=== PATIENT | male | born 1960 | race African-American/Black ===

== ENCOUNTER 2017-03-08 22:24 | Inpatient (IN) | payer OTHER ==
[~2017-03-08] VITALS: Ht 180.3 cm; Wt 110.8 kg
[~2017-03-08 22:24] MED LIST: ASPI325T8 PO; ATOR40TA PO; LISI-334 PO; LISI-338 PO
[2017-03-08 23:00] LABS: BASO # 0.1 x10^3/uL (0.0-0.2); BASO % 1 % (0-3); EOS % 2 % (0-3); HEMATOCRIT 45.6 % (39.0-53.0); HEMOGLOBIN 15.1 g/dL (13.0-17.5); LYMPH # 3.5 x10^3/uL (1.0-4.8); LYMPH % 40 % (24-48); MEAN CORPUSCULAR HEMOGLOBIN 28 pg (25-35); MEAN CORPUSCULAR HGB CONC 33 g/dL (31-37); MEAN CORPUSCULAR VOLUME 85 fL (79-100); MONO % 9 % (0-9); NEUT % 48 % (31-73); PLATELET COUNT 278 x10^3/uL (140-400); RED BLOOD COUNT 5.37 x10^6/uL (4.30-5.70); RED CELL DISTRIBUTION WIDTH 17.2 % (11.5-14.5); WHITE BLOOD COUNT 8.6 x10^3/uL (4.0-11.0)
[2017-03-08 23:20] LABS: CALCIUM 9.4 mg/dL (8.5-10.1); GFR 92.9; POTASSIUM 4.1 mmol/L (3.5-5.1)
[2017-03-08 23:26] LABS: ALBUMIN 3.7 g/dL (3.4-5.0); DIRECT BILIRUBIN 0.1 mg/dL (0.0-0.2); TOTAL BILIRUBIN 0.2 mg/dL (0.2-1.0); TOTAL PROTEIN 7.3 g/dL (6.4-8.2)
[2017-03-08] MEDS ORDERED: LABETALOL 20 MG/4 ML DISP.SYRIN. IVP ONE (23:30)
[2017-03-08 23:31] LABS: BILIRUBIN,URINE NEGATIVE (NEG); GLUCOSE,URINE NEGATIVE (NEG); NITRITE,URINE NEGATIVE (NEG); PROTEIN,URINE NEGATIVE (NEG-TRACE)
[2017-03-09 00:03] LABS: BACTERIA,URINE 0 /HPF (0-FEW); RBC,URINE OCC /HPF (0-2); SQUAMOUS EPITHELIAL CELL,UR OCC /LPF
[2017-03-09] MEDS ORDERED: MORPHINE SULFATE 4 MG/ML DISP.SYRIN. IV PRN (00:45)
[2017-03-09] MEDS ORDERED: ONDANSETRON PF 4 MG/2 ML VIAL. IV PRN ×2 (00:45→08:30)
--- NOTE | 2017-03-09 00:49 | PHYS DOC ---
Past Medical History Past Medical History: Diabetes-Type II, DVT, High Cholesterol, Hypertension, Stroke Past Surgical History: Appendectomy, Other Additional Past Surgical Histo: LEFT LEG FASCIOTOMY Alcohol Use: Occasionally Drug Use: None Adult General Chief Complaint Chief Complaint: FATIGUE HPI HPI 56 yo M presenting with generalized weakness that started on thursday (3 days ago ) . He reports being last well 3 days ago. He feels a generalized weakness and malaise everywhere. It is worse when he walks. It is present in all extremities. He does feel increased numbness over his right arm. He denies headache. Location brain. Duration constant. No alleviating or exacerbating factors present. Review of systems is negative for chest pain shortness of breath fevers chills nausea vomiting abdominal pain. All other review of systems is negative unless otherwise noted in history of present illness. ED course: 56-year-old male presenting to the emergency department today with generalized fatigue and weakness and malaise with mild focal numbness in his right upper extremity. Patient is outside of the window for TPA and outside of the mechanical thrombectomy window. NIH stroke scale is [address] unremarkable. EKG reviewed by myself shows sinus rhythm with a regular rate. Tama is normal. ST segments are congruent. Not suggestive of ACS. Chest x- ray obtained. Chest x-ray reviewed by myself shows no obvious infiltrate or pneumothorax present. No obvious acute cardiopulmonary process present. Otherwise blood work unremarkable. Given the patient's neurologic changes we admitted the patient for MRI and neurology consultation. Review of Systems Review of Systems SEE ABOVE. Current Medications Current Medications Current Medications Medications (Trade) Dose Ordered Sig/Masoud Start Time Stop Time Status Last Admin Dose Admin Labetalol HCl (Normodyne) 20 mg 1X ONCE 03/08/17 23:30 03/08/17 23:31 DC 03/08/17 23:19 20 MG Morphine Sulfate 2 mg PRN Q2HR PRN 03/09/17 00:45 03/10/17 00:44 UNV Ondansetron HCl (Zofran) 4 mg PRN Q8HRS PRN 03/09/17 00:45 03/10/17 00:44 UNV Allergies Allergies Allergies Coded Allergies Type Severity Reaction Last Updated Verified No Known Drug Allergies 09/05/14 No Physical Exam Physical Exam Constitutional: Well developed, well nourished, no acute distress, non-toxic appearance. HENT: Normocephalic, atraumatic, bilateral external ears normal, oropharynx moist, no oral exudates, nose normal. [] Eyes: PERRLA, EOMI, conjunctiva normal, no discharge. Neck: Normal range of motion, no tenderness, supple, no stridor. [] Cardiovascular:Heart rate regular rhythm, no murmur Lungs & Thorax: Bilateral breath sounds clear to auscultation [] Abdomen: Bowel sounds normal, soft, no tenderness, no masses, no pulsatile masses. Skin: Warm, dry, no erythema, no rash. Back: No tenderness, no CVA tenderness. [] Extremities: No tenderness, no cyanosis, no clubbing, ROM intact, no edema. [] Neurologic: Mental status: Awake oriented and alert x3 Cranial nerves: Extraocular movements intact, eyebrows gonzalez bilaterally smile symmetric, uvula elevation, shoulder shrug intact, tongue protrusion normal DTRs: 2+ Sensation: decreased sensation in the right upper ext without any changes in the other ext. Strength: 5/5 in upper and lower extremities bilaterally Psychologic: Affect normal, judgement normal, mood normal. [] Current Patient Data Vital Signs Vital Signs Date Time Temp Pulse Resp B/P (MAP) Pulse Ox O2 Delivery O2 Flow Rate FiO2 03/08/17 23:19 60 207/100 03/08/17 22:45 98.8 14 100 Room Air 98.8 Lab Values Laboratory Tests Test 03/08/17 22:49 03/08/17 23:22 White Blood Count 8.6 x10^3/uL (4.0-11.0) Red Blood Count 5.37 x10^6/uL (4.30-5.70) Hemoglobin 15.1 g/dL (13.0-17.5) Hematocrit 45.6 % (39.0-53.0) Mean Corpuscular Volume 85 fL (79-100) Mean Corpuscular Hemoglobin 28 pg (25-35) Mean Corpuscular Hemoglobin Concent 33 g/dL (31-37) Red Cell Distribution Width 17.2 % (11.5-14.5) H Platelet Count 278 x10^3/uL (140-400) Neutrophils (%) (Auto) 48 % (31-73) Lymphocytes (%) (Auto) 40 % (24-48) Monocytes (%) (Auto) 9 % (0-9) Eosinophils (%) (Auto) 2 % (0-3) Basophils (%) (Auto) 1 % (0-3) Neutrophils # (Auto) 4.1 x10^3uL (1.8-7.7) Lymphocytes # (Auto) 3.5 x10^3/uL (1.0-4.8) Monocytes # (Auto) 0.8 x10^3/uL (0.0-1.1) Eosinophils # (Auto) 0.2 x10^3/uL (0.0-0.7) Basophils # (Auto) 0.1 x10^3/uL (0.0-0.2) Sodium Level 142 mmol/L (136-145) Potassium Level 4.1 mmol/L (3.5-5.1) Chloride Level 105 mmol/L (98-107) Carbon Dioxide Level 27 mmol/L (21-32) Anion Gap 10 (6-14) Blood Urea Nitrogen 11 mg/dL (8-26) Creatinine 1.0 mg/dL (0.7-1.3) Estimated GFR (Cockcroft-Gault) 92.9 Glucose Level 126 mg/dL (70-99) H Lactic Acid Level 1.1 mmol/L (0.4-2.0) Calcium Level 9.4 mg/dL (8.5-10.1) Total Bilirubin 0.2 mg/dL (0.2-1.0) Direct Bilirubin 0.1 mg/dL (0.0-0.2) Aspartate Amino Transferase (AST) 20 U/L (15-37) Alanine Aminotransferase (ALT) 35 U/L (16-63) Alkaline Phosphatase 122 U/L (46-116) H Troponin I Quantitative < 0.017 ng/mL (0.000-0.055) RV-Yss-B-Type Natriuretic Peptide 44 pg/mL (0-124) Total Protein 7.3 g/dL (6.4-8.2) Albumin 3.7 g/dL (3.4-5.0) Lipase 326 U/L (73-393) Urine Collection Type Unknown Urine Color Yellow Urine Clarity Clear Urine pH 7.0 Urine Specific [place] 1.020 Urine Protein Negative mg/dL (NEG-TRACE) Urine Glucose (UA) Negative mg/dL (NEG) Urine Ketones (Stick) Negative mg/dL (NEG) Urine Blood Negative (NEG) Urine Nitrite Negative (NEG) Urine Bilirubin Negative (NEG) Urine Urobilinogen Dipstick 1.0 mg/dL (0.2 mg/dL) Urine Leukocyte Esterase Negative (NEG) Urine RBC Occ /HPF (0-2) Urine WBC 1-4 /HPF (0-4) Urine Squamous Epithelial Cells Occ /LPF Urine Bacteria 0 /HPF (0-FEW) Urine Mucus Slight /LPF Laboratory Tests 03/08/17 22:49 Laboratory Tests 03/08/17 22:49 EKG EKG [] Radiology/Procedures Radiology/Procedures [] Course & Med Decision Making Course & Med Decision Making Pertinent Labs and Imaging studies reviewed. (See chart for details) [] Dragon Disclaimer Dragon Disclaimer This electronic medical record was generated, in whole or in part, using a voice recognition dictation system. Departure Departure Impression: Primary Impression: Generalized weakness Disposition: 01 HOME, SELF-CARE Admitting Physician: Tierra Shearer Condition: STABLE Referrals: SANJAY ROPER MD (PCP) MEME MENDOZA MD Mar 09, 2017 00:49
--- NOTE | 2017-03-09 00:58 | RAD ---
EXAM: CT head without contrast HISTORY: GENERALIZED WEAKNESS, hx STROKE COMPARISON: October 14, 2014 TECHNIQUE: Computed tomographic images of the head were obtained without contrast. RS compliance statement: One or more of the following individualized dose reduction techniques were utilized for this examination: 1. Automated exposure control 2. Adjustment of the mA and/or kV according to patient size 3. Use of iterative reconstruction technique FINDINGS: There is no acute intracranial process identified. Specifically, there are no intracranial blood products, extra-axial fluid collections, mass effect or midline shift. Ventricles and basilar cisterns are maintained. Some low-attenuation is seen within the left basal ganglia. No adjacent mass effect is present. This is not definitively seen on the previous exam from 2014. The visualized portions of the orbits, paranasal sinuses and mastoid air cells are unremarkable. No suspicious calvarial lesion is seen. IMPRESSION: No acute intracranial findings. Low-attenuation within the left basal ganglia likely represents prior infarct although more acute/subacute ischemia is not entirely excluded. Electronically signed by: Smitha Marcial MD (03/09/2017 12:55 AM) [id number]
[2017-03-09] MEDS ORDERED: LISI10TA2 PO (02:48)
[2017-03-09] MEDS ORDERED: ATOR40TA PO (02:48)
[2017-03-09] MEDS ORDERED: INSU100V13 SQ (02:48)
[2017-03-09] MEDS ORDERED: ASPI325T8 PO (02:48)
[2017-03-09 03:00] VITALS: BP 151/98
--- NOTE | 2017-03-09 06:14 | EKG ---
[facility] [address] [place] [address] Test Date: 2017-03-08 Test Time: 22:41:49 Pat Name: MAYA HAWTHORNE Department: Room: Gender: M Musical Engineer: : 1960 Requested By: MEME MENDOZA Order Number: [id number] Reading MD: Measurements Intervals [place] Rate: 59 P: 59 AR: 176 QRS: 18 QRSD: 86 T: 25 QT: 390 QTc: 390 Interpretive Statements SINUS RHYTHM LEFT ATRIAL ABNORMALITY QRS(T) CONTOUR ABNORMALITY CONSIDER ANTEROLATERAL MYOCARDIAL DAMAGE RI6.01 Unconfirmed report No previous ECG available for comparison
[2017-03-09 07:00] VITALS: BP 193/95
--- NOTE | 2017-03-09 08:09 | RAD ---
Portable chest, 03/08/2017: History: Generalized weakness Comparison is made to a study from 10/15/2014. The heart size and pulmonary vascularity are normal. No pulmonary infiltrates are seen. There is no evidence of pleural fluid. IMPRESSION: No acute cardiopulmonary abnormality is detected.
--- NOTE | 2017-03-09 08:20 | PDOC2 ---
NEUROLOGY CONSULT Date of Admission Date of Admission DATE: 03/09/17 TIME: 08:14 Reason for Consult Reason for Consult: Weakness Referring Physician Referring Physician: Dr. Shearer PCP: Dr. Wilder Source Source: Chart review, Patient History of Present Illness History of Present Illness The patient is a 56-year-old right-handed male who noticed some weakness about 3 -4 days ago mainly on the right side with some numbness in the right hand as well. He had a stroke involving the left side about 4 years ago. He really, cannot explain why he waited so long to come in, but he did not present to our emergency department until last night. Thus, he obviously was not a candidate for interventional treatment such as tissue plasminogen activator. He admits that he has not been taking his medications lately, but is taking a daily aspirin. He will on closer questioning, he has some generalized weakness as well. He is feeling a little better today. There is no headache, diplopia, dysphagia, dysarthria, cognitive change. He made a full recovery from his prior stroke. Past Medical History Cardiovascular: HTN Pulmonary: Bronchitis CENTRAL NERVOUS SYSTEM: CVA Psych: Depression Endocrine: Diabetes Past Surgical History Past Surgical History: Appendectomy Family History Family History: CAD Social History Social History , works at [employer], smokes a pack a day or less, occasional alcohol Current Medications Current Medications Current Medications Labetalol HCl (Normodyne) 20 mg 1X ONCE IVP Last administered on 03/08/17t 23: 19; Start 03/08/17 at 23:30; Stop 03/08/17 at 23:31; Status DC Ondansetron HCl (Zofran) 4 mg PRN Q8HRS PRN IV NAUSEA/VOMITING; Start 03/09/17 at 00:45; Stop 03/10/17 at 00:44 Morphine Sulfate 2 mg PRN Q2HR PRN IV SEVERE PAIN; Start 03/09/17 at 00:45; Stop 03/10/17 at 00:44 Pneumococcal Polyvalent Vaccine (Pneumovax 23) 0.5 ml ONCE ONCE VAX IM ; Start 03/09/17 at 09:00; Stop 03/09/17 at 09:01; Status UNV Active Scripts Active Reported Levemir (Insulin Detemir) 100 Unit/1 Ml Vial 14 Unit SQ HS Aspirin 325 Mg Tablet 1 Tab PO DAILY Lisinopril 10 Mg Tablet 10 Mg PO DAILY Lipitor (Atorvastatin Calcium) 40 Mg Tablet 40 Mg PO HS Allergies Allergies: Coded Allergies: No Known Drug Allergies (Unverified , 09/05/14) ROS Review of System Patient denies fevers, chills, weight loss, dyspnea, angina, abdominal pain, change in bowels, or dysuria. 14 point review of systems is negative. Physical Exam Physical Examination PHYSICAL EXAMINATION: Vital signs: see above. General appearance is normal and in no acute distress. HEENT: Normocephalic and nontraumatic. Eyes, nose, ears, and throat are unremarkable. Neck is supple. No lymphadenopathy. No bruits are heard over the carotid artery. No crepitus. NEUROLOGICAL EXAMINATION: Mental Status Examination: Alert. Oriented to time, place, and person. Answers questions and follows commends. Pupils are equal round and reactive to light and accommodation. Funduscopic exam: No papilledema. Extraocular movements are intact. Visual field exam shows no defect on the direct confrontation. No motor or sensory deficits on the facial exam. Uvula in the midline and the soft palate elevated symmetrically. No deviation of the tongue to any direction. Gross hearing is normal. Shoulder shrug normal. Muscle tone is normal. Muscle strength is 5, does have slight right pronator drift. Deep tendon reflexes are 1+ all around. Plantar reflex is with flexion response bilaterally. [id number] test performance is accurate. Alternative movements are accurate. Gait is a little unsteady. Sensory exam shows no deficits. No cerebellar signs are elicited. Vitals VITALS Vital Signs Date Time Temp Pulse Resp B/P (MAP) Pulse Ox O2 Delivery O2 Flow Rate FiO2 03/09/17 04:09 Room Air 03/09/17 03:00 98.4 62 18 151/98 (115) 96 98.4 Labs Labs Laboratory Tests Test 03/08/17 22:49 03/08/17 23:22 White Blood Count 8.6 x10^3/uL (4.0-11.0) Red Blood Count 5.37 x10^6/uL (4.30-5.70) Hemoglobin 15.1 g/dL (13.0-17.5) Hematocrit 45.6 % (39.0-53.0) Mean Corpuscular Volume 85 fL (79-100) Mean Corpuscular Hemoglobin 28 pg (25-35) Mean Corpuscular Hemoglobin Concent 33 g/dL (31-37) Red Cell Distribution Width 17.2 % (11.5-14.5) Platelet Count 278 x10^3/uL (140-400) Neutrophils (%) (Auto) 48 % (31-73) Lymphocytes (%) (Auto) 40 % (24-48) Monocytes (%) (Auto) 9 % (0-9) Eosinophils (%) (Auto) 2 % (0-3) Basophils (%) (Auto) 1 % (0-3) Neutrophils # (Auto) 4.1 x10^3uL (1.8-7.7) Lymphocytes # (Auto) 3.5 x10^3/uL (1.0-4.8) Monocytes # (Auto) 0.8 x10^3/uL (0.0-1.1) Eosinophils # (Auto) 0.2 x10^3/uL (0.0-0.7) Basophils # (Auto) 0.1 x10^3/uL (0.0-0.2) Sodium Level 142 mmol/L (136-145) Potassium Level 4.1 mmol/L (3.5-5.1) Chloride Level 105 mmol/L (98-107) Carbon Dioxide Level 27 mmol/L (21-32) Anion Gap 10 (6-14) Blood Urea Nitrogen 11 mg/dL (8-26) Creatinine 1.0 mg/dL (0.7-1.3) Estimated GFR (Cockcroft-Gault) 92.9 Glucose Level 126 mg/dL (70-99) Lactic Acid Level 1.1 mmol/L (0.4-2.0) Calcium Level 9.4 mg/dL (8.5-10.1) Total Bilirubin 0.2 mg/dL (0.2-1.0) Direct Bilirubin 0.1 mg/dL (0.0-0.2) Aspartate Amino Transf (AST/SGOT) 20 U/L (15-37) Alanine Aminotransferase (ALT/SGPT) 35 U/L (16-63) Alkaline Phosphatase 122 U/L (46-116) Troponin I Quantitative < 0.017 ng/mL (0.000-0.055) DV-Qkw-G-Type Natriuretic Peptide 44 pg/mL (0-124) Total Protein 7.3 g/dL (6.4-8.2) Albumin 3.7 g/dL (3.4-5.0) Lipase 326 U/L (73-393) Urine Collection Type Unknown Urine Color Yellow Urine Clarity Clear Urine pH 7.0 Urine Specific [place] 1.020 Urine Protein Negative mg/dL (NEG-TRACE) Urine Glucose (UA) Negative mg/dL (NEG) Urine Ketones (Stick) Negative mg/dL (NEG) Urine Blood Negative (NEG) Urine Nitrite Negative (NEG) Urine Bilirubin Negative (NEG) Urine Urobilinogen Dipstick 1.0 mg/dL (0.2 mg/dL) Urine Leukocyte Esterase Negative (NEG) Urine RBC Occ /HPF (0-2) Urine WBC 1-4 /HPF (0-4) Urine Squamous Epithelial Cells Occ /LPF Urine Bacteria 0 /HPF (0-FEW) Urine Mucus Slight /LPF Laboratory Tests Test 03/08/17 22:49 03/08/17 23:22 White Blood Count 8.6 x10^3/uL (4.0-11.0) Red Blood Count 5.37 x10^6/uL (4.30-5.70) Hemoglobin 15.1 g/dL (13.0-17.5) Hematocrit 45.6 % (39.0-53.0) Mean Corpuscular Volume 85 fL (79-100) Mean Corpuscular Hemoglobin 28 pg (25-35) Mean Corpuscular Hemoglobin Concent 33 g/dL (31-37) Red Cell Distribution Width 17.2 % (11.5-14.5) Platelet Count 278 x10^3/uL (140-400) Neutrophils (%) (Auto) 48 % (31-73) Lymphocytes (%) (Auto) 40 % (24-48) Monocytes (%) (Auto) 9 % (0-9) Eosinophils (%) (Auto) 2 % (0-3) Basophils (%) (Auto) 1 % (0-3) Neutrophils # (Auto) 4.1 x10^3uL (1.8-7.7) Lymphocytes # (Auto) 3.5 x10^3/uL (1.0-4.8) Monocytes # (Auto) 0.8 x10^3/uL (0.0-1.1) Eosinophils # (Auto) 0.2 x10^3/uL (0.0-0.7) Basophils # (Auto) 0.1 x10^3/uL (0.0-0.2) Sodium Level 142 mmol/L (136-145) Potassium Level 4.1 mmol/L (3.5-5.1) Chloride Level 105 mmol/L (98-107) Carbon Dioxide Level 27 mmol/L (21-32) Anion Gap 10 (6-14) Blood Urea Nitrogen 11 mg/dL (8-26) Creatinine 1.0 mg/dL (0.7-1.3) Estimated GFR (Cockcroft-Gault) 92.9 Glucose Level 126 mg/dL (70-99) Lactic Acid Level 1.1 mmol/L (0.4-2.0) Calcium Level 9.4 mg/dL (8.5-10.1) Total Bilirubin 0.2 mg/dL (0.2-1.0) Direct Bilirubin 0.1 mg/dL (0.0-0.2) Aspartate Amino Transf (AST/SGOT) 20 U/L (15-37) Alanine Aminotransferase (ALT/SGPT) 35 U/L (16-63) Alkaline Phosphatase 122 U/L (46-116) Troponin I Quantitative < 0.017 ng/mL (0.000-0.055) YK-Syd-Y-Type Natriuretic Peptide 44 pg/mL (0-124) Total Protein 7.3 g/dL (6.4-8.2) Albumin 3.7 g/dL (3.4-5.0) Lipase 326 U/L (73-393) Urine Collection Type Unknown Urine Color Yellow Urine Clarity Clear Urine pH 7.0 Urine Specific [place] 1.020 Urine Protein Negative mg/dL (NEG-TRACE) Urine Glucose (UA) Negative mg/dL (NEG) Urine Ketones (Stick) Negative mg/dL (NEG) Urine Blood Negative (NEG) Urine Nitrite Negative (NEG) Urine Bilirubin Negative (NEG) Urine Urobilinogen Dipstick 1.0 mg/dL (0.2 mg/dL) Urine Leukocyte Esterase Negative (NEG) Urine RBC Occ /HPF (0-2) Urine WBC 1-4 /HPF (0-4) Urine Squamous Epithelial Cells Occ /LPF Urine Bacteria 0 /HPF (0-FEW) Urine Mucus Slight /LPF Images Images Head CT: INDINGS: There is no acute intracranial process identified. Specifically, there are no intracranial blood products, extra-axial fluid collections, mass effect or midline shift. Ventricles and basilar cisterns are maintained. Some low-attenuation is seen within the left basal ganglia. No adjacent mass effect is present. This is not definitively seen on the previous exam from 2015. The visualized portions of the orbits, paranasal sinuses and mastoid air cells are unremarkable. No suspicious calvarial lesion is seen. IMPRESSION: No acute intracranial findings. Low-attenuation within the left basal ganglia likely represents prior infarct although more acute/subacute ischemia is not entirely excluded. Assessment/Plan Assessment/Plan Impression: Possible stroke, consider metabolic issues such as hyperglycemia and hypertension. No sign of peripheral neuropathy, the MRA, myasthenia gravis. He does not have any major metabolic derangement now. History of prior stroke. Recommendations: Brain MRI Echocardiogram Carotid Dopplers Rehabilitation modalities Check lipids, start statin Switch from aspirin to Plavix I encouraged smoking cessation and counseled him. Thank you for letting me help with the patient's care. PEPITO HERBERT MD Mar 09, 2017 08:20
[2017-03-09] MEDS ORDERED: ACETAMINOPHEN 650 MG SUPP.RECT. PR PRN (08:30)
[2017-03-09] MEDS ORDERED: 0.9 % SODIUM CHLORIDE 10 ML DISP.SYRIN. IV PRN (08:30)
[2017-03-09] MEDS ORDERED: ACETAMINOPHEN 325 MG TABLET. PO PRN (08:30)
[2017-03-09] MEDS ORDERED: PNEUMOC CONJ VACC 23-VALENT 0.5 ML VIAL. VAX IM ONE (09:00)
[2017-03-09 10:00] VITALS: BP 182/90
[2017-03-09] MEDS: CLOPIDOGREL BISULFATE 75 MG TABLET PO SCH (10:18)
[2017-03-09] MEDS: ENOXAPARIN 40 MG/0.4 ML SYRINGE. SQ SCH (10:18)
--- NOTE | 2017-03-09 11:45 | RAD ---
Carotid ultrasound, 03/09/2017: History: Right-sided hand and leg numbness, previous stroke Duplex evaluation of the carotid arteries in neck was performed including grayscale, color-flow and spectral Doppler analysis. The proximal internal carotid arteries are quite tortuous bilaterally. There is mild intimal thickening and smooth plaquing in the common carotid arteries and at both carotid bifurcations. The peak systolic velocity in the right internal carotid artery is 125 cm/s with an end-diastolic velocity of 44 cm/s. The internal carotid to common carotid artery ratio on the right is 1.6. The Doppler findings suggest narrowing in the 0-50% diameter range. On the left, the peak systolic velocity in the internal carotid artery is 107 cm/s with an end-diastolic velocity of 33 cm/s. The internal carotid to common carotid artery ratio on the left is 1.4. The left Doppler findings suggest narrowing in the 0-50% diameter range. Antegrade flow is present in both vertebral arteries in the neck. IMPRESSION: Tortuosity and mild atherosclerotic plaquing at both carotid bifurcations with underlying luminal narrowing in the 0-50% diameter range bilaterally. Note: Stenosis calculations for CTA, MRA and conventional angiography are based upon determination of the distal ICA diameter in accordance with the NASCET methodology. Stenosis calculations for Doppler studies are derived from validated velocity criteria which are known to correlate with NASCET methodology of determining stenosis.
--- NOTE | 2017-03-09 12:50 | RAD ---
MRI Brain without contrast History: Right-sided tingling for 3 days Technique: Multiplanar, multisequential noncontrast MR imaging was performed of the brain. Contrast: None Comparison: None Findings: There is 1.2 cm transverse focus of restricted diffusion of the right frontal white matter. There is also 0.8 cm focus of diffusion signal abnormality of the left lateral thalamus, faintly hypointense on ADC map with associated T2 and FLAIR hyperintense abnormality. There is also larger approximate 2.3 cm focus of restricted diffusion with corresponding T2 and FLAIR hyperintense signal abnormality involving the left hippocampal formation and some other scattered amorphous foci of the left temporal occipital lobes. There is no midline shift or extra-axial fluid collection. Ventricular size is within normal limits. Cerebral volume is within normal limits. There is preservation of the major arterial intracranial flow voids at the skull base. There are old lacunar infarcts in the sree, other [id number] T2 and FLAIR hyperintense signal abnormality of the sree. This also some other scattered T2 and FLAIR hyperintense abnormality of the supratentorial white matter bilaterally. There is small left maxillary sinus mucous retention cyst 1.1 cm. There is mild fluid and thickening of the right mastoid air cells. Cerebellar tonsils are normal in location. There is no significant abnormality of pineal gland or pituitary gland. Impression: 1. There are bilateral recent infarcts, most recent likely of the right frontal lobe, likely subacute infarcts of the left thalamus and left temporal occipital lobes. 2. Other scattered T2 and FLAIR hyperintense abnormality of the supratentorial white matter and sree is probably due to chronic microvascular disease, also old lacunar infarcts of the sree. FOR INTERNAL CODING PURPOSES Critical result: Findings discussed with Edna at 03/09/2017 12:46 PM. RESULT CODE: (C) Electronically signed by: Cesar Green MD (03/09/2017 12:47 PM) [id number]
--- NOTE | 2017-03-09 14:02 | CARD ---
APPROVED REPORT EXAM: Two-dimensional and M-mode echocardiogram with Doppler and color Doppler. Other Information Quality : Good INDICATION CVA/TIA Echo Enhancing Agent Agent/Amount Used: Agitated Saline 8mL 2D DIMENSIONS RVDd3.2 (2.9-3.5cm)Left Atrium(2D)3.7 (1.6-4.0cm) IVSd1.4 (0.7-1.1cm)Aortic Root(2D)2.8 (2.0-3.7cm) LVDd4.8 (3.9-5.9cm)LVOT Diameter2.1 (1.8-2.4cm) PWd1.4 (0.7-1.1cm)LVDs3.6 (2.5-4.0cm) FS (%) 25.8 %SV55.1 ml LVEF(%)55.0 (>50%) Aortic Valve AoV Peak Luke.145.0cm/sAoV VTI29.4cm AO Peak GR.8.4mmHgLVOT Peak Luke.142.8cm/s LVOT VTI 31.80cmAO Mean GR.3mmHg EVY (VMAX)3.24st9CBW (VTI)3.63cm2 Mitral Valve MV E Xqeiiklo22.8cm/sMV DECEL REEP349kw MV A Xtjpmqzp51.9cm/sMV TEE93jc E/A Ratio0.8MVA (PHT)3.57cm2 TDI E/Lateral E'8.1E/Medial E'12.2 Tricuspid Valve TR P. Ncaulwzp593eo/sRAP FAFPGEQN2mfJt TR Peak Gr.39cdRwNLNA52gwZv Pulmonary Vein S1 Qbffywhk69.1cm/sD2 Fdbewsay77.6cm/s PVa [id number] LEFT VENTRICLE The left ventricle is normal size. There is mild concentric left ventricular hypertrophy. The left ve ntricular systolic function is normal. The Ejection Fraction is 55-60%. There is normal LV segmental wall motion. Transmitral Doppler flow pattern is Grade I-abnormal relaxation pattern. RIGHT VENTRICLE The right ventricle is normal size. The right ventricular systolic function is normal. ATRIA The left atrium size is normal. The right atrium size is normal. The interatrial septum is intact wit h no evidence for an atrial septal defect or patent foramen ovale as noted on 2-D or Doppler imaging. Injection of bubbles documented no interatrial shunt. AORTIC VALVE The aortic valve is calcified but opens well. Doppler and Color Flow revealed no significant aortic r egurgitation. There is no significant aortic valvular stenosis. MITRAL VALVE The mitral valve is calcified but opens well. There is no evidence of mitral valve prolapse. There is no mitral valve stenosis. Doppler and Color-flow revealed trace mitral regurgitation. TRICUSPID VALVE The tricuspid valve is normal in structure and function. Doppler and Color Flow revealed physiologica l tricuspid regurgitation. The PA pressure was estimated at 25 mmHg. There is no tricuspid valve sten osis. PULMONIC VALVE The pulmonary valve is normal in structure and function. Doppler and Color Flow revealed trace pulmon ic valvular regurgitation. There is no pulmonic valvular stenosis. GREAT VESSELS The aortic root is normal in size. The ascending aorta is normal in size. The IVC is normal in size a nd collapses >50% with inspiration. PERICARDIAL EFFUSION There is no evidence of significant pericardial effusion. Critical Notification Critical Value: No <Conclusion> The left ventricular systolic function is normal. The Ejection Fraction is 55-60%. There is normal LV segmental wall motion. Transmitral Doppler flow pattern is Grade I-abnormal relaxation pattern. Doppler and Color-flow revealed trace mitral regurgitation. The PA pressure was estimated at 25 mmHg. There is no evidence of significant pericardial effusion. Injection of bubbles documented no interatrial shunt.
[2017-03-09 15:01] VITALS: BP 171/59
[2017-03-09] MEDS ORDERED: hydrALAZINE 20 MG/ML VIAL. IVP PRN (15:30)
--- NOTE | 2017-03-09 15:34 | PDOC1 ---
History and Physical Date of Admission Date of Admission 03/08/17 Identification/Chief Complaint Chief Complaint AMS Problems: Source Source: Caregiver, Chart review, Patient History of Present Illness History of Present Illness HPI HPI 56 yo M with h/o stroke with left foot drop as neurologic deficit, was sent to ER by his who found he was mild confused. in ER, he was found right leg was weaker than left side. Pt also c/o generalized weakness, x3ds, no swallow or speech problem. He also had some numbness on right arm. denies fever, chill,s cough, sob, N/V, abd pain. said he dose not take any medication for months 2/2 uncompliance. Past Medical History Cardiovascular: HTN Pulmonary: Bronchitis CENTRAL NERVOUS SYSTEM: CVA Psych: Depression Endocrine: Diabetes Past Surgical History Past Surgical History h/o LEFT LEG FASCIOTOMY Past Surgical History: Appendectomy Family History Family History: Diabetes Social History Smoke: No ALCOHOL: social Drugs: None, Other Current Problem List Problem List Problems Medical Problems: (1) Generalized weakness Status: Acute Current Medications Current Medications Current Medications Medications (Trade) Dose Ordered Sig/Masoud Start Time Stop Time Status Last Admin Dose Admin Acetaminophen (Acetaminophen Supp) 650 mg PRN Q6HRS PRN 03/09/17 08:30 Acetaminophen (Tylenol) 650 mg PRN Q6HRS PRN 03/09/17 08:30 Clopidogrel Bisulfate (Plavix) 75 mg DAILYWBKFT 03/09/17 08:30 03/09/17 10:18 75 MG Enoxaparin Sodium (Lovenox 40mg Syringe) 40 mg Q24H 03/09/17 09:00 03/09/17 10:18 40 MG Labetalol HCl (Normodyne) 20 mg 1X ONCE 03/08/17 23:30 03/08/17 23:31 DC 03/08/17 23:19 20 MG Morphine Sulfate 2 mg PRN Q2HR PRN 03/09/17 00:45 03/10/17 00:44 Ondansetron HCl (Zofran) 4 mg PRN Q6HRS PRN 03/09/17 08:30 Pneumococcal Polyvalent Vaccine (Pneumovax 23) 0.5 ml ONCE ONCE 03/09/17 09:00 03/09/17 09:01 UNV Sodium Chloride (Normal Saline Flush) 3 ml QSHIFT PRN 03/09/17 08:30 Allergies Allergies Allergies Coded Allergies Type Severity Reaction Last Updated Verified No Known Drug Allergies 09/05/14 No ROS Review of System CONSTITUTIONAL: No fever or chills EYES: No recent changes SKIN: No rash or itching CARDIOVASCULAR: No chest pain, syncope, palpitations, or edema RESPIRATORY: No SOB or cough GASTROINTESTINAL: No nausea, vomiting or abdominal pain NEUROLOGICAL: No headaches or weakness ENDOCRINE: No cold or heat intolerance GENITOURINARY: No urgency or frequency of urination MUSCULOSKELETAL: No back pain or joint pain LYMPHATICS: No enlarged lymph nodes PSYCHIATRIC: No anxiety or depression Physical Exam Physical Exam GEN.: No apparent distress. Alert and oriented. HEENT: Head is normocephalic, atraumatic NECK: Supple. LUNGS: Clear to auscultation. HEART: RRR, S1, S2 present. Peripheral pulses intact ABDOMEN: Soft, nontender. Positive bowel sounds. EXTREMITIES: Without any cyanosis. NEUROLOGIC: Normal speech, normal tone PSYCHIATRIC: Normal affect, normal mood. SKIN: No ulcerations Vitals Vitals Vital Signs Date Time Temp Pulse Resp B/P (MAP) Pulse Ox O2 Delivery O2 Flow Rate FiO2 03/09/17 15:01 97.9 55 13 171/59 (96) 75 Room Air 97.9 Labs Labs Laboratory Tests Test 03/08/17 22:49 03/08/17 23:22 03/09/17 12:53 White Blood Count 8.6 x10^3/uL (4.0-11.0) Red Blood Count 5.37 x10^6/uL (4.30-5.70) Hemoglobin 15.1 g/dL (13.0-17.5) Hematocrit 45.6 % (39.0-53.0) Mean Corpuscular Volume 85 fL (79-100) Mean Corpuscular Hemoglobin 28 pg (25-35) Mean Corpuscular Hemoglobin Concent 33 g/dL (31-37) Red Cell Distribution Width 17.2 % (11.5-14.5) Platelet Count 278 x10^3/uL (140-400) Neutrophils (%) (Auto) 48 % (31-73) Lymphocytes (%) (Auto) 40 % (24-48) Monocytes (%) (Auto) 9 % (0-9) Eosinophils (%) (Auto) 2 % (0-3) Basophils (%) (Auto) 1 % (0-3) Neutrophils # (Auto) 4.1 x10^3uL (1.8-7.7) Lymphocytes # (Auto) 3.5 x10^3/uL (1.0-4.8) Monocytes # (Auto) 0.8 x10^3/uL (0.0-1.1) Eosinophils # (Auto) 0.2 x10^3/uL (0.0-0.7) Basophils # (Auto) 0.1 x10^3/uL (0.0-0.2) Sodium Level 142 mmol/L (136-145) Potassium Level 4.1 mmol/L (3.5-5.1) Chloride Level 105 mmol/L (98-107) Carbon Dioxide Level 27 mmol/L (21-32) Anion Gap 10 (6-14) Blood Urea Nitrogen 11 mg/dL (8-26) Creatinine 1.0 mg/dL (0.7-1.3) Estimated GFR (Cockcroft-Gault) 92.9 Glucose Level 126 mg/dL (70-99) Lactic Acid Level 1.1 mmol/L (0.4-2.0) Calcium Level 9.4 mg/dL (8.5-10.1) Total Bilirubin 0.2 mg/dL (0.2-1.0) Direct Bilirubin 0.1 mg/dL (0.0-0.2) Aspartate Amino Transf (AST/SGOT) 20 U/L (15-37) Alanine Aminotransferase (ALT/SGPT) 35 U/L (16-63) Alkaline Phosphatase 122 U/L (46-116) Troponin I Quantitative < 0.017 ng/mL (0.000-0.055) MV-Zpa-R-Type Natriuretic Peptide 44 pg/mL (0-124) Total Protein 7.3 g/dL (6.4-8.2) Albumin 3.7 g/dL (3.4-5.0) Lipase 326 U/L (73-393) Urine Collection Type Unknown Urine Color Yellow Urine Clarity Clear Urine pH 7.0 Urine Specific [place] 1.020 Urine Protein Negative mg/dL (NEG-TRACE) Urine Glucose (UA) Negative mg/dL (NEG) Urine Ketones (Stick) Negative mg/dL (NEG) Urine Blood Negative (NEG) Urine Nitrite Negative (NEG) Urine Bilirubin Negative (NEG) Urine Urobilinogen Dipstick 1.0 mg/dL (0.2 mg/dL) Urine Leukocyte Esterase Negative (NEG) Urine RBC Occ /HPF (0-2) Urine WBC 1-4 /HPF (0-4) Urine Squamous Epithelial Cells Occ /LPF Urine Bacteria 0 /HPF (0-FEW) Urine Mucus Slight /LPF Glucose (Fingerstick) 111 mg/dL (70-99) Laboratory Tests Test 03/08/17 22:49 03/08/17 23:22 03/09/17 12:53 White Blood Count 8.6 x10^3/uL (4.0-11.0) Red Blood Count 5.37 x10^6/uL (4.30-5.70) Hemoglobin 15.1 g/dL (13.0-17.5) Hematocrit 45.6 % (39.0-53.0) Mean Corpuscular Volume 85 fL (79-100) Mean Corpuscular Hemoglobin 28 pg (25-35) Mean Corpuscular Hemoglobin Concent 33 g/dL (31-37) Red Cell Distribution Width 17.2 % (11.5-14.5) Platelet Count 278 x10^3/uL (140-400) Neutrophils (%) (Auto) 48 % (31-73) Lymphocytes (%) (Auto) 40 % (24-48) Monocytes (%) (Auto) 9 % (0-9) Eosinophils (%) (Auto) 2 % (0-3) Basophils (%) (Auto) 1 % (0-3) Neutrophils # (Auto) 4.1 x10^3uL (1.8-7.7) Lymphocytes # (Auto) 3.5 x10^3/uL (1.0-4.8) Monocytes # (Auto) 0.8 x10^3/uL (0.0-1.1) Eosinophils # (Auto) 0.2 x10^3/uL (0.0-0.7) Basophils # (Auto) 0.1 x10^3/uL (0.0-0.2) Sodium Level 142 mmol/L (136-145) Potassium Level 4.1 mmol/L (3.5-5.1) Chloride Level 105 mmol/L (98-107) Carbon Dioxide Level 27 mmol/L (21-32) Anion Gap 10 (6-14) Blood Urea Nitrogen 11 mg/dL (8-26) Creatinine 1.0 mg/dL (0.7-1.3) Estimated GFR (Cockcroft-Gault) 92.9 Glucose Level 126 mg/dL (70-99) Lactic Acid Level 1.1 mmol/L (0.4-2.0) Calcium Level 9.4 mg/dL (8.5-10.1) Total Bilirubin 0.2 mg/dL (0.2-1.0) Direct Bilirubin 0.1 mg/dL (0.0-0.2) Aspartate Amino Transf (AST/SGOT) 20 U/L (15-37) Alanine Aminotransferase (ALT/SGPT) 35 U/L (16-63) Alkaline Phosphatase 122 U/L (46-116) Troponin I Quantitative < 0.017 ng/mL (0.000-0.055) JP-Oyb-T-Type Natriuretic Peptide 44 pg/mL (0-124) Total Protein 7.3 g/dL (6.4-8.2) Albumin 3.7 g/dL (3.4-5.0) Lipase 326 U/L (73-393) Urine Collection Type Unknown Urine Color Yellow Urine Clarity Clear Urine pH 7.0 Urine Specific [place] 1.020 Urine Protein Negative mg/dL (NEG-TRACE) Urine Glucose (UA) Negative mg/dL (NEG) Urine Ketones (Stick) Negative mg/dL (NEG) Urine Blood Negative (NEG) Urine Nitrite Negative (NEG) Urine Bilirubin Negative (NEG) Urine Urobilinogen Dipstick 1.0 mg/dL (0.2 mg/dL) Urine Leukocyte Esterase Negative (NEG) Urine RBC Occ /HPF (0-2) Urine WBC 1-4 /HPF (0-4) Urine Squamous Epithelial Cells Occ /LPF Urine Bacteria 0 /HPF (0-FEW) Urine Mucus Slight /LPF Glucose (Fingerstick) 111 mg/dL (70-99) VTE Prophylaxis Ordered VTE Prophylaxis Devices: Yes VTE Pharmacological Prophylaxi: Yes Assessment/Plan Assessment/Plan AMS, 2/2 bl stroke right leg weakness left foot drop with previous CVA uncompliance HTN urgency hld h/o DM not on meds plan: fu with neuro echo normal carotid US ok brain MRI showed bl stroke PTOT ON PLavix now check hba1c, lipid panel add lipitor qhs dvt ppx RIP MIRANDA MD Mar 09, 2017 15:34
[2017-03-09] MEDS: LISINOPRIL 20 MG TABLET PO SCH (16:27)
[2017-03-09] MEDS ORDERED: ATORVASTATIN CALCIUM 40 MG TABLET. PO SCH (21:00)
[2017-03-09 21:53] VITALS: BP 166/90
[2017-03-09 23:00] VITALS: BP 169/79
--- NOTE | 2017-03-10 01:00 | ACF ---
Admission Forms Criteria GENERAL ADMISSION CRITERIA (Place 'X' for any and all applicable criteria): Admission is indicated for ANY ONE of the following: [ ]I. Hemodynamic instability as indicated by ANY ONE of the following(1)(2) (3)(4)(5): [ ]a) Vital sign abnormality not readily corrected by appropriate treatment within 12 to 24 hours indicated by ANY ONE of the following: [ ]i) Hypotension [ ]ii) Symptomatic Tachycardia unresponsive to treatment (eg , analgesia, fluids, sedation as indicated) [ ]iii) Orthostatic vital sign changes unresponsive to treatment (eg, fluids) [ ]b) Vital sign abnormality that is severe indicated by ANY ONE of the following: [ ]i) Inadequate perfusion indicated by ANY ONE of the following: [ ]1) Lactic acidosis (greater than 2 mmol/L) [ ]2) New abnormal capillary refill (greater than 3 seconds) [ ]3) Other metabolic acidosis (arterial pH less than 7.35) not otherwise explained [ ]4) Reduced urine output [ ]5) Altered mental status [ ]6) Myocardial Ischemia [ ]v) Mean arterial pressure[A] less than 60 mm Hg [ ]vi) Mean arterial pressure[A] less than 70 mm Hg after 30 minutes of appropriate treatment (eg, fluid resuscitation) [ ]vii) IV inotropic or vasopressor medication required to maintain adequate blood pressure or perfusion [ ]viii) Sustained heart rate greater than 120 beats per minute in adult or child 6 years or older[B]] [ ]II. Hypertension requiring inpatient treatment as indicated by ANY ONE of the following(6)(7)(8): [ ]a) SBP greater than 220 mm Hg or DBP greater than 120 mm Hg despite treatment [ ]b) SBP greater than 140 mm Hg or DBP greater than 100 mm Hg with evidence of acute end organ damage as indicated by ANY ONE of the following: [ ]i) Encephalopathy [ ]ii) Acute renal failure as indicated by new onset of ANY ONE of the following(9)(10)(11)(12)(13): [ ]1) A 3-fold rise in serum creatinine from baseline [ ]2) Serum creatinine greater than 4 mg/dL ( 354 micromoles/L) with acute rise greater than 0.5 mg/dL (44.2 micromoles/L) [ ]3) Reduction of more than 75% in estimated glomerular filtration rate from baseline [ ]4) Estimated glomerular filtration rate less than 35 mL/min/1.73m2 (0.59 mL/sec/1.73m2) in child up to 18 years of age [ ]5) Cessation of urine output indicated by ALL of the following: [ ]A. Adequate volume status [ ]B. Inadequate urine output as indicated by ANY ONE of the following: [ ]a. Urine output less than 0.3 mL/kg/hr for 24 hours [ ]b. Anuria (urine output less than 0.1 mL/kg/hr) for 12 hours [ ]iii) Aortic dissection [ ]iv) Myocardial ischemia [ ]v) Left ventricular heart failure [ ]vi) Retinal hemorrhage [ ]vii) Other significant finding [ ]c) Hypertension in child requiring inpatient treatment as indicated by ALL of the following(14)(15)(16): [ ]i) Outpatient treatment not effective, not available, or not appropriate [ ]ii) SBP or DBP greater than 95th percentile for age [ ]iii) Evidence of acute end organ damage as indicated by ANY ONE of the following: [ ]1) Altered mental status [ ]2) Acute renal failure as indicated by new onset of ANY ONE of the following(9)(10)(11)(12)(13): [ ]A. A 3-fold rise in serum creatinine from baseline [ ]B. Serum creatinine greater than 4 mg/dL (354 micromoles/L) with acute rise greater than 0.5 mg/dL (44.2 micromoles/L) [ ]C. Reduction of more than 75% in estimated glomerular filtration rate from baseline [ ]D. Estimated glomerular filtration rate less than 35 mL/min/1.73m2 (0.59 mL/sec/1.73m2)in child up to 18 years of age [ ]E. Cessation of urine output indicated by ALL of the following: [ ]a. Adequate volume status [ ]b. Inadequate urine output as indicated by ANY ONE of the following: [ ]1) Urine output less than 0.3 mL/kg/hr for 24 hours [ ]2) Anuria (urine output less than 0.1 mL/kg/hr) for 12 hours [ ]3) Severe headache [ ]4) Visual disturbance [ ]5) Retinal hemorrhage [ ]6) Other significant finding [ ]III. Acute cardiac or peripheral ischemia as indicated by ANY ONE of the following: [ ]a) Acute coronary syndrome(17)(18) [ ]b) Acute peripheral ischemia (eg, pulseless, cool, mottled, or cyanotic extremity)(19) [ ]IV. Cardiac arrhythmias or findings of immediate concern indicated by ANY ONE of the following(20)(21): [ ]a) Heart rhythms that are inherently dangerous or unstable indicated by ANY ONE of the following(22)(23)(24): [ ]i) Resuscitated ventricular fibrillation or cardiac arrest [ ]ii) Ventricular escape rhythm [ ]iii) Sustained ventricular tachycardia (30 seconds or more of ventricular rhythm at greater than 100 beats per minute) [ ]iv) Nonsustained ventricular tachycardia and ANY ONE of the following: [ ]1) Suspected cardiac ischemia as cause or consequence of ventricular tachycardia [ ]2) In setting of acute myocarditis [ ]b) Unstable cardiac conduction defects indicated by ANY ONE of the following(24)(25)(26): [ ]i) Type II second-degree atrioventricular block [ ]ii) Third-degree atrioventricular block [ ]iii) New-onset left bundle branch block with suspected myocardial ischemia [ ]c) Any heart rhythm and ANY ONE of the following(22)(23)(27)(28)( 29): [ ] i) Continuous long-term ECG monitoring needed (eg, initiation of drug requiring monitoring for more than 24 hours) [ ] ii) Patient has automatic implanted cardioverter defibrillator that is repeatedly firing, malfunctioning, or in need of immediate adjustment of settings beyond the scope of ambulatory or observation care. [ ]d) Heart rhythms of concern due to ANY ONE of the following: [ ]i) Hypotension [ ]ii) Respiratory distress [ ]iii) Association with other significant symptoms (eg, bradycardia with syncope or ongoing dizziness, supraventricular tachycardia with chest pain) (27)(28) (30) [ ] V. Severe heart failure as indicated by ANY ONE of the following ( 31)(32): [ ]a) Respiratory distress [ ]b) Hypotension [ ]c) Anasarca (refractory to outpatient therapy) [ ]d) Cardiac arrhythmias of immediate concern [ ]e) Myocardial ischemia [ ]. Respiratory abnormalities, including ANY ONE of the following(33)(34) (35)(36): [ ]a) Respiratory rate greater than 30 breaths per minute unresponsive to treatment [A] [ ]b) New saturation of arterial oxygen less than 90% [ ]c) New partial pressure of carbon dioxide greater than 44 mm Hg ( 5.9 kPa) [ ]d) Supplemental oxygen or respiratory treatments needed that are new or not performable at other levels of care [ ]e) New-onset cyanosis [ ]f) Inability to protect airway [ ]g) Chronic lung disease with severe deterioration (not responsive to emergency and observation care treatment as appropriate) as indicated by ANY ONE of the following(34)(36 ): [ ]i) SaO2 5% below baseline in patient with chronic hypoxemia [ ]ii) New requirement for supplemental oxygen to keep SaO2 at baseline or acceptable level [ ]iii) Required supplemental oxygen performable only in acute inpatient setting [ ]iv) Severe airflow or ventilation abnormalities [ ]v) Previously mobile patient unable to walk between rooms [ ]vi Inability to eat or sleep due to dyspnea [ ]vii) Rapid rate of exacerbation onset [ ]viii) Altered mental status ]VII. Severe airflow or ventilation abnormalities (not responsive to emergency and observation care treatment as appropriate) as indicated by ANY ONE of the following(33)(34)(35)(37): [ ]a) PCO2 greater than 42 mm Hg (5.6 kPa) and pH less than 7.35 (new ) [ ]b) Documented PCO2 increased more than 5 mm Hg (0.7 kPa) from disease baseline [ ]c) Airflow measurements [B] less than 60% of previous best or predicted (eg, peak expiratory flow rate less than 300 L/minute) despite intensive emergent treatment [C] [ ]d) Required respiratory treatments that are performable only in acute inpatient setting [ ]VIII. Impending or actual respiratory arrest ( Also use Respiratory Failure GRG for severe respiratory disease and long-term mechanical ventilation patients) [ ]IX. Neurologic abnormalities, including ANY ONE of the following: [ ]a) New findings that suggest ANY ONE of the following: [ ]i) DISHCLOTH FOLDER infection(38) [ ]ii) Cerebral bleeding, ischemia, or vasospasm(39)(40) [ ]iii) Increased intracranial pressure, hydrocephalus, or cerebral edema(41)(42)(43) [ ]iv) Spinal cord injury(44) [ ]b) Uncontrolled seizures(45) [ ]c) New-onset coma (eg, Larry coma scale score less than 9) or unexplained abnormal mental status (eg, Larry coma scale score less than 14) [D](41)(46)(47) [ ]X. New-onset severe neurologic findings requiring inpatient care; examples include(42)(48)(49): [ ]a) Papilledema [ ]b) Cerebral edema [ ]c) Mass effect on CT scan [ ]XI. Suspected acute intra-abdominal process with peritoneal signs, abdominal mass, or similar findings (50)(51)(52) [ ]XII. Severe physiologic disorder remaining after emergency or observation level care (as appropriate) as indicated by ANY ONE of the following (53): [ ]a) Significant dehydration [ ]b) Diabetic ketoacidosis [ ]c) Hyperglycemic hyperosmolar state (eg, osmolality greater than 320 mOsm/kg (mmol/kg) [ ]d) Hypoglycemia [ ]e) Other (new) acid-base disorder with pH less than 7.35 or greater than 7.5(54) [ ]f) Thyroid storm (55) [ ]g) Myxedema coma (55) [ ]XIII. Abdominal abnormalities with ANY ONE of the following(56)(57): [ ]a) Absent bowel sounds with complete ileus [ ]b) Signs of intestinal obstruction or peritonitis [E] [ ]c) Nausea and vomiting that cannot be controlled with outpatient or observation care [ ]XIV. Acute renal failure as indicated by new onset of ANY ONE of the following(9)(10)(11)(12)(13): [ ]a) A 3-fold rise in serum creatinine from baseline [ ]b) Serum creatinine greater than 4 mg/dL (354 micromoles/L) with acute rise greater than 0.5 mg/dL (44.2 micromoles/L) [ ]c) Reduction of more than 75% in estimated glomerular filtration rate from baseline [ ]d) Estimated glomerular filtration rate less than 35 mL/min/ 1.73m2 (0.59 mL/sec/1.73m2) in child up to 18 years of age [ ]e) Cessation of urine output indicated by ALL of the following: [ ]i) Adequate volume status [ ]ii) Inadequate urine output as indicated by ANY ONE of the following: [ ]1) Urine output less than 0.3 mL/kg/hr for 24 hours [ ]2) Anuria (urine output less than 0.1 mL/kg/hr) for 12 hours [ ]XV. Significant uremic complications as indicated by ANY ONE of the following(58)(59)(60): [ ]a) Outpatient therapy is ineffective or not feasible for ANY ONE of the following: [ ]i) Severe heart failure [ ]ii) Severehypertension [ ]iii) Pleural effusion [ ]iv) Pericarditis or pericardial effusion [ ]b) Cardiac arrhythmias of immediate concern [ ]c) Intractable nausea or vomiting [ ]d) Recurrent seizures [ ]e) Encephalopathy [ ]f) Bleeding abnormalities (eg, platelet dysfunction) with active (eg, gastrointestinal) bleeding [ ]g) Dialysis indicated before long-term access or ambulatory arrangements can be made [ ]h) Significant metabolic or electrolyte abnormalities (eg, severe acidosis or hyperkalemia) [ ]XVI. High fever or other high-risk infection situation as indicated by ANY ONE of the following(61)(62)(63)(64): [ ]a) Outpatient and observation care antimicrobial treatment unavailable, not effective, or not appropriate [ ]b) Documented bacteremia [ ]c) Temperature greater than 40.5 degrees C (104.9 degrees F) ( oral) [ ]d) Temperature greater than 39.5 degrees C (103.1 degrees F) ( oral) or less than 36 degrees C (96.8 degrees F) (rectal) that does not respond to e treatment and observation care [ ] XVII. Temperature less than 95 degrees F (35 degrees C)(rectal)(65) [ ] XVIII. Severe nutritional abnormalities as indicated by ALL of the following (66)(67): [ ]a) Inability to tolerate or establish sufficient oral or other enteral nutrition in outpatient setting [ ]b) Parenteral nutrition regimen need that must be implemented on inpatient basis [ ] XIX. Severe electrolyte abnormalities indicated by ALL of the following(68) (69)(70): [ ]a) Electrolytes and associated findings are not as expected for patient baseline or acceptable treatment effects. [ ]b) Severe abnormalities indicated by ANY ONE of the following: [ ]i) Sodium less than 130 mEq/L (mmol/L) (new) [ ]ii)Sodium less than 135 mEq/L (mmol/L) with ANY ONE of the following: [ ]1) Uncorrectable (to near normal or chronic baseline) after trial of outpatient and emergency treatment [ ]2) Altered mental status [ ]3) Seizures [ ]4) Severe medical etiology requiring inpatient management (eg, heart failure, hypovolemia) [ ]iii) Sodium greater than 155 mEq/L (mmol/L) [ ]iv) Sodium greater than 150 mEq/L (mmol/L) with ANY ONE of the following: [ ]1) Uncorrectable (to near normal or chronic baseline) with outpatient and emergency treatment [ ]2) Altered mental status [ ]3) Seizures [ ]4) Severe medical etiology (eg, hypovolemia, diabetes insipidus) [ ]v) Potassium less than 2.5 mEq/L (mmol/L) despite outpatient and emergency treatment [ ]vi) Potassium less than 3 mEq/L (mmol/L) with ANY ONE of the following: [ ]1) Weakness [ ]2) Cardiac abnormality (eg, arrhythmia, conduction disturbance) [ ]3) Cardiac ischemia [ ]4) Ileus [ ]5) Ongoing medical cause requiring inpatient management (eg, acute renal wasting or SIADH) [ ]6) Other severe symptoms [ ]vii) Potassium greater than 6.5 mEq/L (mmol/L) [ ]viii) Potassium greater than 5 mEq/L (mmol/L) with ANY ONE of the following: [ ]1) Uncorrectable (to near normal or chronic baseline) with outpatient and emergency treatment [ ]2) Severe ECG findings [F] [ ]3) Acute worsening of renal failure (creatinine greater than 2.5 mg/dL (221 micromoles/L) or significant elevation for age and size) [ ]4) Severe weakness [ ]5) Severe medical etiology (eg, hemolysis, infection, drug overdose) [ ]ix) Calcium less than 7 mg/dL (1.75 mmol/L) despite outpatient and emergency treatment (72) [ ]x) Calcium less than 8 mg/dL (2 mmol/L) with significant symptoms or findings; examples include(72): [ ]1) Altered mental status [ ]2) Muscle spasms [ ]3) Seizures [ ]4) Breathing difficulty [ ]5) Cardiac abnormality (eg, arrhythmia or conduction disturbance) [ ]xi) Calcium greater than 14 mg/dL (3.5 mmol/L)(72) [ ]xii) Calcium greater than 12 mg/dL (3 mmol/L) with ANY ONE of the following(72): [ ]1) Uncorrectable (to near normal or chronic baseline) with outpatient and emergency treatment [ ]2) Significant dehydration or hypovolemia as indicated by ALL of the following(70)(73)(74): [ ]A. Not resolved with initial treatments [ ]B. Clinically significant dehydration as indicated by ANY ONE of the following: [ ]a. Vomiting refractory to outpatient treatment (ie, precluding oral rehydration) [ ]b. Inability to drink [ ]c. Hypernatremia or other electrolyte abnormality unable to be corrected with outpatient and emergency treatment [ ]d. Failure to remain hydrated with outpatient therapy [ ]e. Reduced urine output [ ]f. Hypotension [ ]g. Serious cause for dehydration requiring acute hospitalization (eg, bowel obstruction, increased intracranial pressure, infectious cause) [ ]h. Child with ANY ONE of the following(75): [ ]1) Severe abdominal tenderness [ ]2) Adequate care not available at home [ ]3) Severe dehydration ( greater than 9% loss of body weight) [ ]4) Significant symptoms or findings; examples include: [ ]A. Altered mental status [ ]B. Cardiac abnormality (eg, arrhythmia, conduction disturbance) [ ]C. Malignant etiology requiring inpatient treatment [ ]xiii) Phosphorus less than 1 mg/dL (0.32 mmol/L) [ ]xiv) Phosphorus less than 1.5 mg/dL (0.48 mmol/L) with ANY ONE of the following: [ ]1) Patient unresponsive to outpatient and emergency treatment [ ]2) Significant symptoms or findings; examples include: [ ]A. Weakness [ ]B. Altered mental status [ ]C. Breathing difficulty [ ]D. Seizures [ ]E. Rhabdomyolysis [ ]xv) Phosphorus greater than 10 mg/dL (3.2 mmol/L) [ ]xvi) Phosphorus greater than 4.5 mg/dL (1.45 mmol/L) (new) with ANY ONE of the following: [ ]1) Severe medical etiology (eg, crush injury, acute renal failure) [ ]2) Associated hypocalcemia with significant findings; examples include: [ ]A. Neurologic symptoms [ ]B. Altered mental status [ ]C. Muscle spasms [ ]D. Seizures [ ]E. Breathing difficulty [ ]F. Cardiac abnormality (eg, arrhythmia, conduction disturbance) [ ]xvii) Magnesium less than 1 mg/dL (0.41 mmol/L) [ ]xviii) Magnesium less than 1.5 mg/dL (0.62 mmol/L) with ANY ONE of the following: [ ]1) Patient unresponsive to outpatient and emergency treatment [ ]2) Associated hypocalcemia with significant findings; examples include: [ ]A. Altered mental status [ ]B. Muscle spasms [ ]C. Seizures [ ]D. Breathing difficulty [ ]E. Cardiac abnormality (eg, arrhythmia , conduction disturbance) [ ]3) Associated hypokalemia (potassium less than 3 mEq/L (mmol/L)) with risk of arrhythmia [ ]xix) Magnesium greater than 4 mEq/L (2 mmol/L) [ ]xx) Magnesium greater than 2.5 mEq/L (1.25 mmol/L) with significant symptoms or findings; examples include: [ ]1) Weakness [ ]2) Altered mental status [ ]3) Cardiac abnormality (eg, arrhythmia, conduction disturbance) [ ]4) Breathing difficulty [ ]5) Severe medical etiology (eg, renal failure, hypovolemia) [ ]xxi) Uric acid greater than 20 mg/dL (1190 micromoles/L)(76) [ ]xxii) Uric acid greater than 8 mg/dL (476 micromoles/L) with significant symptoms or findings of tumor lysis syndrome; examples include(76): [ ]1) Creatinine greater than 1.5 times upper limit of normal [ ]2) Cardiac abnormality (eg, arrhythmia, conduction disturbance) [ ]3) Seizure [ ]XX. Acute blood loss causing significant abnormality as indicated by ANY ONE of the following(77)(78): [ ]a) Hemoglobin less than 10 g/dL (100 g/L) (not baseline) [ ]b) Hematocrit less than 30% (0.30) (not baseline) [ ]c) Repeat hematocrit decreased more than 2% (0.02) [ ]d) Uncontrolled bleeding [ ]XXI. Severe anemia indicated by ANY ONE of the following(78)(79): [ ]a) Altered mental status [ ]b) Chest pain [ ]c) Exertional dyspnea [ ]d) Syncope [ ]e) Other findings suggesting inadequate perfusion [ ]f) Treatment with transfusion or volume replacement is ineffective at resolving ANY ONE of the following [G]: [ ]i) Tachycardia for age [ ]ii) Orthostatic vital sign changes as indicated by ANY ONE of the following(80): [ ]1) Fall in SBP of 20 mm Hg or more 1 to 3 minutes after patient sits or stands from recumbent position [ ]2) Fall in DBP of 10 mm Hg or more 1 to 3 minutes after patient sits or stands from recumbent position [ ]XXII. High-risk low platelet count as indicated by ANY ONE of the following( 81)(82): [ ]a) Severe or life-threatening bleeding (eg, intracranial, major gastrointestinal, or extensive mucosal bleeding), with any reduced platelet count [ ]b) Platelet count less than 20,000/mm3 (20 x109/L) with any active bleeding [ ]c) Platelet count less than 10,000/mm3 (10 x109/L) with minor purpura or petechiae [ ]d) Platelet count less than 5000/mm3 (5 x109/L) [ ]e) Low platelet count with hemolytic anemia [ ]XXIII. Disseminated intravascular coagulation(77)(83) [ ]XXIV. Severe adverse drug or systemic toxin reaction requiring inpatient treatment; examples include(84)(85): [ ]a) Serotonin syndrome(86) [ ]b) Neuroleptic malignant syndrome(86) [ ]c) Cholinergic syndrome with severe symptoms (eg, bronchorrhea, weakness, mental status changes, seizures) [ ]d) Sympathetic syndrome with severe symptoms (eg, seizures, mental status changes, cardiac dysrhythmias) [ ]e) Anticholinergic syndrome [ ]XXV. Severe pain requiring acute inpatient management as indicated by ALL of the following (87)(88)(89): [ ]a) Continuous or frequent (eg, every 2 to 4 hours) parenteral analgesics required [H] [ ]b) Rapid improvement expected from treatment or acute intervention (eg, surgery, anesthesia procedure) [ ]XXVI.Severe behavioral health issues judged unmanageable at a lower level of care (eg, residential) in a patient who is ANY ONE of the following(91) [ ]a) Acutely suicidal [ ]b) A danger to self (eg, self-mutilating or suicidal behavior) [ ]c) A danger to others (eg, assaultive or homicidal behavior) [ ]d) Incapacitated because of grave disability (eg, inability to provide for self at lower level of care) (92) [X]XXVII. Inpatient monitoring needed; examples include(1)(3)(87)(93)(94)(95)(96 ): [X]a) Vital signs, neurologic signs, or vascular checks more frequently than every 4 hours [ ]b) Cardiac or respiratory monitoring beyond the scope (eg, over 24 hours) of observation care [ ]c) Pulmonary artery catheter monitoring [ ]d) Suspected compartment syndrome(97) (98) [ ]e) Cerebral bleeding, hydrocephalus, or vasospasm monitoring [ ]f) Increased intracranial pressure or cerebral edema monitoring [ ]g) monitoring [ ]XXVIII. Treatment requiring inpatient care; examples include: [ ]a) IV fluid to replace significant ongoing losses (greater than 3 L/m2 per day)(53) [ ]b) High concentration oxygen (greater than 40%)(33)(99)(100) [ ]c) Frequent respiratory therapy (more frequently than every 4 hours) to maintain airflow rates greater than 60% of baseline(33)(99)(100) [ ]d) Epidural analgesia(87) [ ]e) IV anticoagulation, vasoactive, or antiarrhythmic medication(19 )(23) [ ]f) Acute thrombolytics (generally require 24 hours of observation )(101)(102) [ ]XXIX. Emergency procedures needed; examples include: [ ]a) Emergency inpatient surgery [ ]b) Temporary pacemaker placement(103) [ ]c) Chest tube placement with active evacuation (eg, suction, drainage)(104) [ ]d) Emergent cardioversion(105) [ ]e) Emergent cardiac or vascular procedures (eg, cardiac catheterization, angioplasty) (17)(18) [ ]f) Emergent dialysis access placement and institution(10)(106) [ ]g) Emergent pericardiocentesis(107) [ ]h) Emergent plasmapheresis or leukapheresis(83) [ ]i) Emergent tracheostomy The original [employer] content created by [employer] has been revised. The portions of the content which have been revised are identified through the use of italic text or in bold, and [facility] [employer] has neither reviewed nor approved the modified material. All other unmodified content is copyright [employer]. Please see references footnoted in the original [employer] edition 2016 Admission Criteria Met?: Yes DWAYNE AGRNER Mar 10, 2017 01:00
[2017-03-10 03:00] VITALS: BP 159/92
[2017-03-10 06:27] LABS: BASO # 0.1 x10^3/uL (0.0-0.2); BASO % 1 % (0-3); EOS % 2 % (0-3); HEMATOCRIT 44.7 % (39.0-53.0); HEMOGLOBIN 14.6 g/dL (13.0-17.5); LYMPH # 3.1 x10^3/uL (1.0-4.8); LYMPH % 45 % (24-48); MEAN CORPUSCULAR HEMOGLOBIN 28 pg (25-35); MEAN CORPUSCULAR HGB CONC 33 g/dL (31-37); MEAN CORPUSCULAR VOLUME 85 fL (79-100); MONO % 10 % (0-9); NEUT % 43 % (31-73); PLATELET COUNT 279 x10^3/uL (140-400); RED BLOOD COUNT 5.24 x10^6/uL (4.30-5.70)
[2017-03-10 06:42] LABS: CALCIUM 9.2 mg/dL (8.5-10.1); CREATININE 0.9 mg/dL (0.7-1.3); GFR 104.9; POTASSIUM 4.3 mmol/L (3.5-5.1)
[2017-03-10 06:54] LABS: CHOLESTEROL/HDL RATIO 5.3
[2017-03-10 07:00] VITALS: BP 172/97
[2017-03-10] MEDS: CLOPIDOGREL BISULFATE 75 MG TABLET PO SCH (08:10)
[2017-03-10 08:11] VITALS: BP 172/97
[2017-03-10] MEDS: LISINOPRIL 20 MG TABLET PO SCH (08:11)
[2017-03-10] MEDS: ENOXAPARIN 40 MG/0.4 ML SYRINGE. SQ SCH (08:11)
--- NOTE | 2017-03-10 10:19 | PDOC ---
PROGRESS NOTES Assessment Problems Medical Problems: (1) Generalized weakness Status: Acute Bilateral lacunar-type infarcts, no evidence of embolic or carotid-artery source. Hyperlipidemia, hypertension, elevated glucose Plan Statin, I discussed risks, benefits, alternatives, and side effects, including the need to monitor liver functions and muscles Plavix, replaces aspirin Management of possible diabetes, hypertension, per internal medicine He does not appear to need any rehab and can be discharged even today. Follow-up with me as needed. Follow-up with primary physician Subjective No complaints Objective Vital Signs Date Time Temp Pulse Resp B/P (MAP) Pulse Ox O2 Delivery O2 Flow Rate FiO2 03/10/17 08:11 53 172/97 03/10/17 07:00 98.2 20 98 98.2 03/10/17 03:00 Room Air Intake and Output 03/10/17 07:00 Intake Total 2330 ml Balance 2330 ml Intake Oral 2330 ml # Voids 4 PHYSICAL EXAM Alert. Oriented to time, place and person. PERRL. EOMI. CN: no focal findings. Muscle tone: normal. Muscle strength: 5/5, no pronator drift DTR: 2+ Plantar reflex: flexor Gait: favors left leg Sensory exam: hypesthesia, left leg, where he had fasciotomy and DVT. No cerebellar signs elicited. Review of Relevant I have reviewed the following items coco (where applicable) has been applied. Labs Laboratory Tests Test 03/08/17 22:49 03/08/17 23:22 03/09/17 12:53 03/09/17 16:34 White Blood Count 8.6 x10^3/uL (4.0-11.0) Red Blood Count 5.37 x10^6/uL (4.30-5.70) Hemoglobin 15.1 g/dL (13.0-17.5) Hematocrit 45.6 % (39.0-53.0) Mean Corpuscular Volume 85 fL (79-100) Mean Corpuscular Hemoglobin 28 pg (25-35) Mean Corpuscular Hemoglobin Concent 33 g/dL (31-37) Red Cell Distribution Width 17.2 % (11.5-14.5) Platelet Count 278 x10^3/uL (140-400) Neutrophils (%) (Auto) 48 % (31-73) Lymphocytes (%) (Auto) 40 % (24-48) Monocytes (%) (Auto) 9 % (0-9) Eosinophils (%) (Auto) 2 % (0-3) Basophils (%) (Auto) 1 % (0-3) Neutrophils # (Auto) 4.1 x10^3uL (1.8-7.7) Lymphocytes # (Auto) 3.5 x10^3/uL (1.0-4.8) Monocytes # (Auto) 0.8 x10^3/uL (0.0-1.1) Eosinophils # (Auto) 0.2 x10^3/uL (0.0-0.7) Basophils # (Auto) 0.1 x10^3/uL (0.0-0.2) Sodium Level 142 mmol/L (136-145) Potassium Level 4.1 mmol/L (3.5-5.1) Chloride Level 105 mmol/L (98-107) Carbon Dioxide Level 27 mmol/L (21-32) Anion Gap 10 (6-14) Blood Urea Nitrogen 11 mg/dL (8-26) Creatinine 1.0 mg/dL (0.7-1.3) Estimated GFR (Cockcroft-Gault) 92.9 Glucose Level 126 mg/dL (70-99) Lactic Acid Level 1.1 mmol/L (0.4-2.0) Calcium Level 9.4 mg/dL (8.5-10.1) Total Bilirubin 0.2 mg/dL (0.2-1.0) Direct Bilirubin 0.1 mg/dL (0.0-0.2) Aspartate Amino Transf (AST/SGOT) 20 U/L (15-37) Alanine Aminotransferase (ALT/SGPT) 35 U/L (16-63) Alkaline Phosphatase 122 U/L (46-116) Troponin I Quantitative < 0.017 ng/mL (0.000-0.055) EQ-Dzk-I-Type Natriuretic Peptide 44 pg/mL (0-124) Total Protein 7.3 g/dL (6.4-8.2) Albumin 3.7 g/dL (3.4-5.0) Lipase 326 U/L (73-393) Urine Collection Type Unknown Urine Color Yellow Urine Clarity Clear Urine pH 7.0 Urine Specific [place] 1.020 Urine Protein Negative mg/dL (NEG-TRACE) Urine Glucose (UA) Negative mg/dL (NEG) Urine Ketones (Stick) Negative mg/dL (NEG) Urine Blood Negative (NEG) Urine Nitrite Negative (NEG) Urine Bilirubin Negative (NEG) Urine Urobilinogen Dipstick 1.0 mg/dL (0.2 mg/dL) Urine Leukocyte Esterase Negative (NEG) Urine RBC Occ /HPF (0-2) Urine WBC 1-4 /HPF (0-4) Urine Squamous Epithelial Cells Occ /LPF Urine Bacteria 0 /HPF (0-FEW) Urine Mucus Slight /LPF Glucose (Fingerstick) 111 mg/dL (70-99) 167 mg/dL (70-99) Test 03/09/17 21:26 03/10/17 05:00 03/10/17 05:10 Glucose (Fingerstick) 119 mg/dL (70-99) Sodium Level 142 mmol/L (136-145) Potassium Level 4.3 mmol/L (3.5-5.1) Chloride Level 106 mmol/L (98-107) Carbon Dioxide Level 27 mmol/L (21-32) Anion Gap 9 (6-14) Blood Urea Nitrogen 8 mg/dL (8-26) Creatinine 0.9 mg/dL (0.7-1.3) Estimated GFR (Cockcroft-Gault) 104.9 Glucose Level 98 mg/dL (70-99) Calcium Level 9.2 mg/dL (8.5-10.1) Triglycerides Level 97 mg/dL (0-150) Cholesterol Level 158 mg/dL (0-200) LDL Cholesterol, Calculated 109 mg/dL (0-100) VLDL Cholesterol, Calculated 19 mg/dL (0-40) Non-HDL Cholesterol Calculated 128 mg/dL (0-129) HDL Cholesterol 30 mg/dL (40-60) Cholesterol/HDL Ratio 5.3 White Blood Count 7.0 x10^3/uL (4.0-11.0) Red Blood Count 5.24 x10^6/uL (4.30-5.70) Hemoglobin 14.6 g/dL (13.0-17.5) Hematocrit 44.7 % (39.0-53.0) Mean Corpuscular Volume 85 fL (79-100) Mean Corpuscular Hemoglobin 28 pg (25-35) Mean Corpuscular Hemoglobin Concent 33 g/dL (31-37) Red Cell Distribution Width 17.0 % (11.5-14.5) Platelet Count 279 x10^3/uL (140-400) Neutrophils (%) (Auto) 43 % (31-73) Lymphocytes (%) (Auto) 45 % (24-48) Monocytes (%) (Auto) 10 % (0-9) Eosinophils (%) (Auto) 2 % (0-3) Basophils (%) (Auto) 1 % (0-3) Neutrophils # (Auto) 3.0 x10^3uL (1.8-7.7) Lymphocytes # (Auto) 3.1 x10^3/uL (1.0-4.8) Monocytes # (Auto) 0.7 x10^3/uL (0.0-1.1) Eosinophils # (Auto) 0.2 x10^3/uL (0.0-0.7) Basophils # (Auto) 0.1 x10^3/uL (0.0-0.2) Laboratory Tests Test 03/09/17 12:53 03/09/17 16:34 03/09/17 21:26 03/10/17 05:00 Glucose (Fingerstick) 111 mg/dL (70-99) 167 mg/dL (70-99) 119 mg/dL (70-99) Sodium Level 142 mmol/L (136-145) Potassium Level 4.3 mmol/L (3.5-5.1) Chloride Level 106 mmol/L (98-107) Carbon Dioxide Level 27 mmol/L (21-32) Anion Gap 9 (6-14) Blood Urea Nitrogen 8 mg/dL (8-26) Creatinine 0.9 mg/dL (0.7-1.3) Estimated GFR (Cockcroft-Gault) 104.9 Glucose Level 98 mg/dL (70-99) Calcium Level 9.2 mg/dL (8.5-10.1) Triglycerides Level 97 mg/dL (0-150) Cholesterol Level 158 mg/dL (0-200) LDL Cholesterol, Calculated 109 mg/dL (0-100) VLDL Cholesterol, Calculated 19 mg/dL (0-40) Non-HDL Cholesterol Calculated 128 mg/dL (0-129) HDL Cholesterol 30 mg/dL (40-60) Cholesterol/HDL Ratio 5.3 Test 03/10/17 05:10 White Blood Count 7.0 x10^3/uL (4.0-11.0) Red Blood Count 5.24 x10^6/uL (4.30-5.70) Hemoglobin 14.6 g/dL (13.0-17.5) Hematocrit 44.7 % (39.0-53.0) Mean Corpuscular Volume 85 fL (79-100) Mean Corpuscular Hemoglobin 28 pg (25-35) Mean Corpuscular Hemoglobin Concent 33 g/dL (31-37) Red Cell Distribution Width 17.0 % (11.5-14.5) Platelet Count 279 x10^3/uL (140-400) Neutrophils (%) (Auto) 43 % (31-73) Lymphocytes (%) (Auto) 45 % (24-48) Monocytes (%) (Auto) 10 % (0-9) Eosinophils (%) (Auto) 2 % (0-3) Basophils (%) (Auto) 1 % (0-3) Neutrophils # (Auto) 3.0 x10^3uL (1.8-7.7) Lymphocytes # (Auto) 3.1 x10^3/uL (1.0-4.8) Monocytes # (Auto) 0.7 x10^3/uL (0.0-1.1) Eosinophils # (Auto) 0.2 x10^3/uL (0.0-0.7) Basophils # (Auto) 0.1 x10^3/uL (0.0-0.2) Medications Current Medications Labetalol HCl (Normodyne) 20 mg 1X ONCE IVP Last administered on 03/08/17t 23: 19; Start 03/08/17 at 23:30; Stop 03/08/17 at 23:31; Status DC Ondansetron HCl (Zofran) 4 mg PRN Q8HRS PRN IV NAUSEA/VOMITING; Start 03/09/17 at 00:45; Stop 03/09/17 at 14:12; Status DC Morphine Sulfate 2 mg PRN Q2HR PRN IV SEVERE PAIN; Start 03/09/17 at 00:45; Stop 03/10/17 at 00:44; Status DC Pneumococcal Polyvalent Vaccine (Pneumovax 23) 0.5 ml ONCE ONCE VAX IM ; Start 03/09/17 at 09:00; Stop 03/09/17 at 09:01; Status UNV Sodium Chloride (Normal Saline Flush) 3 ml QSHIFT PRN IV AFTER MEDS AND BLOOD DRAWS; Start 03/09/17 at 08:30 Clopidogrel Bisulfate (Plavix) 75 mg DAILYWBKFT PO Last administered on 08:10; Start 03/09/17 at 08:30 Acetaminophen (Tylenol) 650 mg PRN Q6HRS PRN PO FEVER; Start 03/09/17 at 08:30 Acetaminophen (Acetaminophen Supp) 650 mg PRN Q6HRS PRN LA FEVER; Start at 08:30; Stop 03/09/17 at 15:29; Status DC Ondansetron HCl (Zofran) 4 mg PRN Q6HRS PRN IV NAUSEA/VOMITING; Start 03/09/17 at 08:30 Enoxaparin Sodium (Lovenox 40mg Syringe) 40 mg Q24H SQ Last administered on 08:11; Start 03/09/17 at 09:00 Hydralazine HCl (Apresoline) 10 mg PRN Q4HRS PRN IVP ELEVATED BP, SEE COMMENTS ; Start 03/09/17 at 15:30 Lisinopril (Prinivil) 20 mg DAILY PO Last administered on 03/10/17 08:11; Start 03/09/17 at 16:00 Atorvastatin Calcium (Lipitor) 40 mg QHS PO Last administered on 03/09/17 21: 52; Start 03/09/17 at 21:00 Active Scripts Active Reported Levemir (Insulin Detemir) 100 Unit/1 Ml Vial 14 Unit SQ HS Aspirin 325 Mg Tablet 1 Tab PO DAILY Lisinopril 10 Mg Tablet 10 Mg PO DAILY Lipitor (Atorvastatin Calcium) 40 Mg Tablet 40 Mg PO HS Vitals/I & O Vital Sign - Last 24 Hours 03/09/17 03/09/17 03/09/17 03/09/17 15:01 16:27 19:00 20:00 Temp 97.9 97.8 97.9 97.8 Pulse 55 55 61 Resp 13 20 B/P (MAP) 171/59 (96) 171/59 Pulse Ox 75 98 O2 Delivery Room Air Room Air Room Air 03/09/17 03/09/17 03/10/17 03/10/17 21:53 23:00 03:00 07:00 Temp 98.3 98.3 98.2 98.3 98.3 98.2 Pulse 55 55 56 63 Resp 20 20 20 B/P (MAP) 166/90 (115) 169/79 (109) 159/92 (114) 172/97 (122) Pulse Ox 99 100 98 O2 Delivery Room Air Room Air 03/10/17 08:11 Pulse 53 B/P (MAP) 172/97 Intake and Output 03/09/17 03/09/17 03/10/17 15:00 23:00 07:00 Intake Total 750 ml 1280 ml 300 ml Balance 750 ml 1280 ml 300 ml Images MRI brain: Findings: There is 1.2 cm transverse focus of restricted diffusion of the right frontal white matter. There is also 0.8 cm focus of diffusion signal abnormality of the left lateral thalamus, faintly hypointense on ADC map with associated T2 and FLAIR hyperintense abnormality. There is also larger approximate 2.3 cm focus of restricted diffusion with corresponding T2 and FLAIR hyperintense signal abnormality involving the left hippocampal formation and some other scattered amorphous foci of the left temporal occipital lobes. There is no midline shift or extra-axial fluid collection. Ventricular size is within normal limits. Cerebral volume is within normal limits. There is preservation of the major arterial intracranial flow voids at the skull base. There are old lacunar infarcts in the sree, other [id number] T2 and FLAIR hyperintense signal abnormality of the sree. This also some other scattered T2 and FLAIR hyperintense abnormality of the supratentorial white matter bilaterally. There is small left maxillary sinus mucous retention cyst 1.1 cm. There is mild fluid and thickening of the right mastoid air cells. Cerebellar tonsils are normal in location. There is no significant abnormality of pineal gland or pituitary gland. Impression: 1. There are bilateral recent infarcts, most recent likely of the right frontal lobe, likely subacute infarcts of the left thalamus and left temporal occipital lobes. 2. Other scattered T2 and FLAIR hyperintense abnormality of the supratentorial white matter and sree is probably due to chronic microvascular disease, also old lacunar infarcts of the sree. Carotids: IMPRESSION: Tortuosity and mild atherosclerotic plaquing at both carotid bifurcations with underlying luminal narrowing in the 0-50% diameter range bilaterally. Echocardiogram: LEFT VENTRICLE The left ventricle is normal size. There is mild concentric left ventricular hypertrophy. The left ventricular systolic function is normal. The Ejection Fraction is 55-60%. There is normal LV segmental wall motion. Transmitral Doppler flow pattern is Grade I-abnormal relaxation pattern. RIGHT VENTRICLE The right ventricle is normal size. The right ventricular systolic function is normal. ATRIA The left atrium size is normal. The right atrium size is normal. The interatrial septum is intact with no evidence for an atrial septal defect or patent foramen ovale as noted on 2-D or Doppler imaging. Injection of bubbles documented no interatrial shunt. AORTIC VALVE The aortic valve is calcified but opens well. Doppler and Color Flow revealed no significant aortic regurgitation. There is no significant aortic valvular stenosis. MITRAL VALVE The mitral valve is calcified but opens well. There is no evidence of mitral valve prolapse. There is no mitral valve stenosis. Doppler and Color-flow revealed trace mitral regurgitation. TRICUSPID VALVE The tricuspid valve is normal in structure and function. Doppler and Color Flow revealed physiological tricuspid regurgitation. The PA pressure was estimated at 25 mmHg. There is no tricuspid valve stenosis. PULMONIC VALVE The pulmonary valve is normal in structure and function. Doppler and Color Flow revealed trace pulmonic valvular regurgitation. There is no pulmonic valvular stenosis. GREAT VESSELS The aortic root is normal in size. The ascending aorta is normal in size. The IVC is normal in size and collapses >50% with inspiration. PERICARDIAL EFFUSION There is no evidence of significant pericardial effusion. Critical Notification Critical Value: No <Conclusion> The left ventricular systolic function is normal. The Ejection Fraction is 55-60%. There is normal LV segmental wall motion. Transmitral Doppler flow pattern is Grade I-abnormal relaxation pattern. Doppler and Color-flow revealed trace mitral regurgitation. The PA pressure was estimated at 25 mmHg. There is no evidence of significant pericardial effusion. Injection of bubbles documented no interatrial shunt. PEPITO HERBERT MD Mar 10, 2017 10:19
[2017-03-10] MEDS ORDERED: ATOR40TA PO (11:36)
[2017-03-10] MEDS ORDERED: CLOP75TA PO (11:36)
[2017-03-10] MEDS ORDERED: LISI40TA PO (11:36)
--- NOTE | 2017-03-10 13:19 | PDOC3 ---
Discharge Summary [facility] Date of Admission: Mar 09, 2017 Discharge Date: Mar 10, 2017 Admitting Diagnosis AMS, 2/2 bl new stroke right foot and hand weakness 2/2 stroke left foot drop with previous CVA uncompliance HTN urgency hld h/o DM not on meds Problems: Final Diagnosis CONSULTS neuro Brief Hospital Course 56 yo M with h/o stroke with left foot drop as neurologic deficit, was sent to ER by his who found he was mild confused. in ER, he was found right leg was weaker than left side. Pt also c/o generalized weakness, x3ds, no swallow or speech problem. He also had some numbness on right arm. denies fever, chill,s cough, sob, N/V, abd pain. said he dose not take any medication for months 2/2 uncompliance. Brain MRI showed bl subacute/acute stroke. Carotid US, echo neg. pt cont feel mild right hand and foot weakness, right hand some numbness, left side is ok. dc home with lipitor, lisinopril. glucose ok dc time 35min GEN.: No apparent distress. Alert and oriented. HEENT: Head is normocephalic, atraumatic NECK: Supple. LUNGS: Clear to auscultation. HEART: RRR, S1, S2 present. Peripheral pulses intact ABDOMEN: Soft, nontender. Positive bowel sounds. EXTREMITIES: Without any cyanosis. NEUROLOGIC: Normal speech, normal tone. right foot strength 4/5, right hand 4/5, with mild numbness PSYCHIATRIC: Normal affect, normal mood. SKIN: No ulcerations Patient History: Family history: Diabetes mellitus (situation) Family history: Hypertension (situation) Problems: Disposition home CONDITION AT DISCHARGE: Improved Diet low salt Scheduled Atorvastatin Calcium (Lipitor), 40 MG PO HS Clopidogrel Bisulfate (Clopidogrel), 75 MG PO DAILYWBKFT Insulin Detemir (Levemir), 14 UNIT SQ HS, (Reported) Lisinopril (Lisinopril), 10 MG PO DAILY, (Reported) Lisinopril (Lisinopril), 40 MG PO DAILY Discontinued Medications Aspirin (Aspirin), 1 TAB PO DAILY, (Reported) Follow Up pcp in 2 weeks RIP MIRANDA MD Mar 10, 2017 13:19
[2017-03-11] MEDS ORDERED: LISINOPRIL 40 MG TABLET. PO SCH (09:00)
== END 2017-03-10 15:38 | disposition home or self-care (01) | DRG 66 ==
LOC: ER 22:24 → 5 SOUTH 03-09 01:18
PROVIDERS: ADMIT Internal Medicine; ATTEND Internal Medicine
DX: I63.9 Cerebral infarction, unspecified (principal); E11.65 Type 2 diabetes mellitus with hyperglycemia; I10 Essential (primary) hypertension; E78.5 Hyperlipidemia, unspecified; E78.00 Pure hypercholesterolemia, unspecified; F17.210 Nicotine dependence, cigarettes, uncomplicated; I16.0 Hypertensive urgency; M21.372 Foot drop, left foot; Z82.49 Family history of ischemic heart disease and other diseases of the circulatory system; Z83.3 Family history of diabetes mellitus; Z90.49 Acquired absence of other specified parts of digestive tract; F32.9 Major depressive disorder, single episode, unspecified; Z86.718 Personal history of other venous thrombosis and embolism; Z93.8 Other artificial opening status; Z90.89 Acquired absence of other organs
CPT/HCPCS: 99285; C8929; 36415; 70450; 70551; 71010; 80048; 80061; 80076; 81001; 82962; 83036; 83605; 83690; 83880; 84484; 85025; 93005; 93306; 93880; 96374; G0378; J1650; J3490; 92610

== ENCOUNTER 2017-09-06 12:07 | Inpatient (IN) | payer OTHER ==
[2017-09-06 12:40] LABS: POC GLUCOSE 475 mg/dL (70-99)
[2017-09-06 13:24] LABS: ADD MAN DIFF? NO
[2017-09-06] MEDS: IV NORMAL SALINE 1000ML BAG 1,000 ML IV (13:25)
[2017-09-06 13:36] LABS: ANION GAP 11 (6-14); BILIRUBIN,URINE NEGATIVE (NEG); BLOOD UREA NITROGEN 15 mg/dL (8-26); CARBON DIOXIDE 24 mmol/L (21-32); CHLORIDE 95 mmol/L (98-107); CLARITY,URINE CLEAR; COLOR,URINE YELLOW; CREATININE 1.1 mg/dL (0.7-1.3); GFR 82.9; GLUCOSE 451 mg/dL (70-99); GLUCOSE,URINE >=1000 mg/dL (NEG); NITRITE,URINE NEGATIVE (NEG); POTASSIUM 4.5 mmol/L (3.5-5.1); PROTEIN,URINE NEGATIVE (NEG-TRACE); SODIUM 130 mmol/L (136-145); UROBILINOGEN,URINE 0.2 mg/dL (0.2 mg/dL)
[2017-09-06 13:37] LABS: BASO # 0.1 x10^3/uL (0.0-0.2); BASO % 1 % (0-3); EOS # 0.1 x10^3/uL (0.0-0.7); EOS % 1 % (0-3); HEMATOCRIT 46.1 % (39.0-53.0); HEMOGLOBIN 15.6 g/dL (13.0-17.5); LYMPH # 2.5 x10^3/uL (1.0-4.8); LYMPH % 28 % (24-48); MEAN CORPUSCULAR HEMOGLOBIN 28 pg (25-35); MEAN CORPUSCULAR HGB CONC 34 g/dL (31-37); MEAN CORPUSCULAR VOLUME 83 fL (79-100); MONO # 0.5 x10^3/uL (0.0-1.1); MONO % 6 % (0-9); NEUT # 5.7 x10^3uL (1.8-7.7); NEUT % 65 % (31-73); PLATELET COUNT 229 x10^3/uL (140-400); RED BLOOD COUNT 5.55 x10^6/uL (4.30-5.70); RED CELL DISTRIBUTION WIDTH 14.2 % (11.5-14.5); WHITE BLOOD COUNT 8.8 x10^3/uL (4.0-11.0)
[2017-09-06 13:43] LABS: ALBUMIN 3.7 g/dL (3.4-5.0); ALK PHOS 164 U/L (46-116); ALT (SGPT) 40 U/L (16-63); AST (SGOT) 21 U/L (15-37); DIRECT BILIRUBIN 0.1 mg/dL (0.0-0.2); LIPASE 184 U/L (73-393); MAGNESIUM 2.2 mg/dL (1.8-2.4); TOTAL BILIRUBIN 0.4 mg/dL (0.2-1.0); TOTAL PROTEIN 7.6 g/dL (6.4-8.2)
[2017-09-06 13:44] LABS: TROPONINI < 0.017 ng/mL (0.000-0.055)
[2017-09-06 13:49] LABS: NT-PRO BNP 20 pg/mL (0-124)
[2017-09-06 13:49] LABS: CKMB INDEX 0.3 % (0-4); CKMB MASS 0.7 ng/mL (0.0-3.6); CREATINE KINASE 216 U/L (39-308)
[2017-09-06 13:52] LABS: BACTERIA,URINE 0 /HPF (0-FEW); RBC,URINE 0 /HPF (0-2); WBC,URINE 0 /HPF (0-4)
[2017-09-06 14:07] LABS: POC GLUCOSE 371 mg/dL (70-99)
[2017-09-06] MEDS ORDERED: ONDANSETRON PF 4 MG/2 ML VIAL. IV (14:45)
[2017-09-06] MEDS: INSULIN REGULAR 100 UNIT/ML 10ML VIAL. IV (14:53)
[2017-09-06] MEDS: LISINOPRIL 20 MG TABLET PO ×2 (16:00→17:40)
[2017-09-06] MEDS ORDERED: DEXTROSE 50% 25 GM / 50ML DISP.SYRIN. IV (16:15)
[2017-09-06 16:24] LABS: POC GLUCOSE 250 mg/dL (70-99)
[2017-09-06 16:29] LABS: POC GLUCOSE 264 mg/dL (70-99)
[2017-09-06] MEDS: ASPIRIN 325 MG TABLET PO (17:39)
[2017-09-06] MEDS: CLOPIDOGREL BISULFATE 75 MG TABLET PO (17:39)
[2017-09-06] MEDS: INSULIN ASPART 300 UNITS/3 ML INSULN.PEN SQ ×2 (17:44→21:45)
[2017-09-06 18:10] LABS: TROPONINI < 0.017 ng/mL (0.000-0.055)
[2017-09-06 20:32] LABS: TROPONINI < 0.017 ng/mL (0.000-0.055)
[2017-09-06 21:14] LABS: POC GLUCOSE 370 mg/dL (70-99)
[2017-09-06] MEDS: ATORVASTATIN CALCIUM 40 MG TABLET. PO (21:39)
[2017-09-06] MEDS: INSULIN DETEMIR 300 UNITS/3 ML INSULN.PEN. SQ (21:44)
[2017-09-07 06:24] LABS: ADD MAN DIFF? NO
[2017-09-07 06:45] LABS: ANION GAP 5 (6-14); BLOOD UREA NITROGEN 13 mg/dL (8-26); CALCIUM 9.1 mg/dL (8.5-10.1); CARBON DIOXIDE 29 mmol/L (21-32); CHLORIDE 101 mmol/L (98-107); CREATININE 0.9 mg/dL (0.7-1.3); GFR 104.5; GLUCOSE 237 mg/dL (70-99); POTASSIUM 3.7 mmol/L (3.5-5.1); SODIUM 135 mmol/L (136-145)
[2017-09-07 06:55] LABS: BASO % 0 % (0-3); EOS # 0.1 x10^3/uL (0.0-0.7); EOS % 2 % (0-3); HEMATOCRIT 44.3 % (39.0-53.0); HEMOGLOBIN 14.8 g/dL (13.0-17.5); LYMPH % 43 % (24-48); MEAN CORPUSCULAR HEMOGLOBIN 28 pg (25-35); MEAN CORPUSCULAR HGB CONC 34 g/dL (31-37); MEAN CORPUSCULAR VOLUME 84 fL (79-100); MONO # 0.5 x10^3/uL (0.0-1.1); MONO % 7 % (0-9); NEUT # 3.4 x10^3uL (1.8-7.7); NEUT % 48 % (31-73); PLATELET COUNT 238 x10^3/uL (140-400); RED CELL DISTRIBUTION WIDTH 14.6 % (11.5-14.5)
[2017-09-07 08:12] LABS: POC GLUCOSE 237 mg/dL (70-99)
[2017-09-07] MEDS: INSULIN ASPART 300 UNITS/3 ML INSULN.PEN SQ ×4 (08:27→21:44)
[2017-09-07] MEDS ORDERED: LISINOPRIL 40 MG TABLET. PO (09:00)
[2017-09-07] MEDS: CLOPIDOGREL BISULFATE 75 MG TABLET PO (09:47)
[2017-09-07] MEDS: ASPIRIN 325 MG TABLET PO (09:47)
[2017-09-07] MEDS: LISINOPRIL 20 MG TABLET PO (09:48)
[2017-09-07 11:38] LABS: POC GLUCOSE 378 mg/dL (70-99)
[2017-09-07] MEDS: metFORMIN 500 MG TABLET PO ×2 (12:02→17:36)
[2017-09-07 12:29] LABS: HEMOGLOBIN A1C 12.8 % (4.8-5.6)
[2017-09-07 14:39] LABS: POC GLUCOSE 458 mg/dL (70-99)
[2017-09-07] MEDS: FLU VACC QS2017-18 (36MOS+)/PF 0.5 ML SYRINGE. VAX IM (15:50)
[2017-09-07 16:38] LABS: POC GLUCOSE 379 mg/dL (70-99)
[2017-09-07] MEDS: GLIMEPIRIDE 2 MG TABLET. PO (17:36)
[2017-09-07 19:28] LABS: POC GLUCOSE 428 mg/dL (70-99)
[2017-09-07] MEDS: ATORVASTATIN CALCIUM 40 MG TABLET. PO (21:36)
[2017-09-07] MEDS: INSULIN DETEMIR 300 UNITS/3 ML INSULN.PEN. SQ (21:45)
[2017-09-08] MEDS: LISINOPRIL 20 MG TABLET PO (08:41)
[2017-09-08] MEDS: ASPIRIN 325 MG TABLET PO (08:42)
[2017-09-08] MEDS: GLIMEPIRIDE 2 MG TABLET. PO (08:42)
[2017-09-08] MEDS: CLOPIDOGREL BISULFATE 75 MG TABLET PO (08:42)
[2017-09-08] MEDS: metFORMIN 500 MG TABLET PO ×2 (08:42→16:50)
[2017-09-08] MEDS: INSULIN ASPART 300 UNITS/3 ML INSULN.PEN SQ ×6 (08:52→17:08)
[2017-09-08 09:18] LABS: POC GLUCOSE 206 mg/dL (70-99)
[2017-09-08 13:42] LABS: POC GLUCOSE 289 mg/dL (70-99)
[2017-09-08 18:29] LABS: POC GLUCOSE 247 mg/dL (70-99)
== END 2017-09-08 17:46 | disposition home or self-care (01) | DRG 637 ==
LOC: ER 12:07 → 4 NORTH 14:15
PROVIDERS: Family Medicine
DX: E11.65 Type 2 diabetes mellitus with hyperglycemia (principal); G93.41 Metabolic encephalopathy; F17.210 Nicotine dependence, cigarettes, uncomplicated; I10 Essential (primary) hypertension; F32.9 Major depressive disorder, single episode, unspecified; R94.31 Abnormal electrocardiogram [ECG] [EKG]; Z79.02 Long term (current) use of antithrombotics/antiplatelets; Z79.4 Long term (current) use of insulin; Z79.82 Long term (current) use of aspirin; Z79.899 Other long term (current) drug therapy; Z82.49 Family history of ischemic heart disease and other diseases of the circulatory system; Z83.3 Family history of diabetes mellitus; Z86.73 Personal history of transient ischemic attack (TIA), and cerebral infarction without residual deficits; Z90.49 Acquired absence of other specified parts of digestive tract
CPT/HCPCS: 36415; 80048; 80076; 81001; 82553; 82962; 83036; 83690; 83735; 83880; 84484; 85025; 90686; 93005; J1815; J7030

== ENCOUNTER 2018-10-12 18:26 | Emergency (ER) | payer OTHER ==
[~2018-10-12] VITALS: Ht 180.3 cm; Wt 113.4 kg
[~2018-10-12 18:26] MED LIST changes: +CLOP75TA PO; +GLIM2TAB PO; +INSU100I17 SQ; +INSU100I27 SQ; +INSU100V13 SQ; +LISI-130 PO; +LISI10TA2 PO; +METF500T PO
[2018-10-12] MEDS ORDERED: IV NORMAL SALINE 1000ML BAG 1,000 ML IV ONE (19:15)
[2018-10-12 19:24] LABS: BASO # 0.1 x10^3/uL (0.0-0.2); BASO % 1 % (0-3); EOS # 0.1 x10^3/uL (0.0-0.7); EOS % 1 % (0-3); HEMATOCRIT 46.4 % (39.0-53.0); HEMOGLOBIN 15.3 g/dL (13.0-17.5); LYMPH # 2.3 x10^3/uL (1.0-4.8); LYMPH % 26 % (24-48); MEAN CORPUSCULAR HEMOGLOBIN 27 pg (25-35); MEAN CORPUSCULAR HGB CONC 33 g/dL (31-37); MEAN CORPUSCULAR VOLUME 82 fL (79-100); MONO # 0.9 x10^3/uL (0.0-1.1); MONO % 10 % (0-9); NEUT # 5.6 x10^3uL (1.8-7.7); NEUT % 63 % (31-73); PLATELET COUNT 304 x10^3/uL (140-400); RED BLOOD COUNT 5.65 x10^6/uL (4.30-5.70); RED CELL DISTRIBUTION WIDTH 15.7 % (11.5-14.5); WHITE BLOOD COUNT 8.9 x10^3/uL (4.0-11.0)
--- NOTE | 2018-10-12 19:26 | PHYS DOC ---
Past Medical History Past Medical History: CVA, Diabetes-Type II, DVT, High Cholesterol, Hypertension, Stroke Past Surgical History: Appendectomy, Other Additional Past Surgical Histo: LEFT LEG FASCIOTOMY Additional Information: 1 pack week. Alcohol Use: Occasionally Drug Use: None Adult General Chief Complaint Chief Complaint: FATIGUE HPI HPI Patient is a 58 year old male with past medical history of hyperlipidemia, hypertension, and diabetes mellitus who presents to the ED complaining of fatigue which started 4 days ago. He believes his fatigue is due to his blood glucose being "out of control" for the past week. He regularly takes his diabetes medications and is unsure why his blood glucose has been abnormally elevated lately. His post prandial blood glucose was measured to be in the 400s around noon today. He has also been feeling nauseous and somnolent, and complains of painful leg cramps. He has also been thirstier than usual but has not been hydrating because he is trying to not drink as much soda. Review of Systems Review of Systems Constitutional: Denies fever or chills. Eyes: Denies change in visual acuity, redness, or eye pain. HENT: Denies nasal congestion or sore throat. Respiratory: Denies cough or shortness of breath. GI: Denies abdominal pain, vomiting, bloody stools or diarrhea. Admits nausea and constipation. : Denies dysuria or hematuria. Integument: Denies rash or skin lesions. Neurologic: Denies headache, focal weakness or sensory changes. Endocrine: Denies polyuria or polydipsia. Complete systems were reviewed and found to be within normal limits, except as documented in this note. Current Medications Current Medications Current Medications Medications (Trade) Dose Ordered Sig/Masoud Start Time Stop Time Status Last Admin Dose Admin Sodium Chloride 1,000 ml @ 1,000 mls/hr 1X ONCE 10/12/18 19:15 10/12/18 20:14 DC 10/12/18 19:19 1,000 MLS/HR Lisinopril Clopidogrel Metformin BID HCTZ NovoLog Lantus Lipitor Allergies Allergies Allergies Coded Allergies Type Severity Reaction Last Updated Verified No Known Drug Allergies 09/05/14 No Physical Exam Physical Exam Constitutional: Well developed, well nourished, no acute distress, non-toxic appearance. HENT: Normocephalic, atraumatic, bilateral external ears normal, oropharynx moist, no oral exudates, nose normal. Eyes: PERRL, EOMI, conjunctiva normal, no discharge. Neck: Normal range of motion, no tenderness, supple, no stridor. Cardiovascular:Heart rate regular rhythm, no murmur. Lungs & Thorax: Bilateral breath sounds clear to auscultation. Abdomen: Bowel sounds normal, soft, no tenderness, no masses, no pulsatile masses. Skin: Warm, dry, no erythema, no rash, L leg fasciotomy scar. Extremities: No tenderness, no cyanosis, no clubbing, ROM intact, no edema. Neurologic: Alert and oriented X 3, normal motor function, normal sensory function, no focal deficits noted no pronator drift. Psychologic: Affect normal, judgement normal, mood normal. Current Patient Data Vital Signs Vital Signs Date Time Temp Pulse Resp B/P (MAP) Pulse Ox O2 Delivery O2 Flow Rate FiO2 10/12/18 21:57 65 18 146/72 (96) 99 Room Air 10/12/18 18:50 97.6 97.6 Lab Values Laboratory Tests Test 10/12/18 18:56 10/12/18 19:05 10/12/18 19:45 10/12/18 20:00 Glucose (Fingerstick) 235 mg/dL (70-99) H White Blood Count 8.9 x10^3/uL (4.0-11.0) Red Blood Count 5.65 x10^6/uL (4.30-5.70) Hemoglobin 15.3 g/dL (13.0-17.5) Hematocrit 46.4 % (39.0-53.0) Mean Corpuscular Volume 82 fL (79-100) Mean Corpuscular Hemoglobin 27 pg (25-35) Mean Corpuscular Hemoglobin Concent 33 g/dL (31-37) Red Cell Distribution Width 15.7 % (11.5-14.5) H Platelet Count 304 x10^3/uL (140-400) Neutrophils (%) (Auto) 63 % (31-73) Lymphocytes (%) (Auto) 26 % (24-48) Monocytes (%) (Auto) 10 % (0-9) H Eosinophils (%) (Auto) 1 % (0-3) Basophils (%) (Auto) 1 % (0-3) Neutrophils # (Auto) 5.6 x10^3uL (1.8-7.7) Lymphocytes # (Auto) 2.3 x10^3/uL (1.0-4.8) Monocytes # (Auto) 0.9 x10^3/uL (0.0-1.1) Eosinophils # (Auto) 0.1 x10^3/uL (0.0-0.7) Basophils # (Auto) 0.1 x10^3/uL (0.0-0.2) Urine Collection Type Void Urine Color Elly Urine Clarity Cloudy Urine pH 5.0 Urine Specific [place] >=1.030 Urine Protein Negative mg/dL (NEG-TRACE) Urine Glucose (UA) 250 mg/dL (NEG) Urine Ketones (Stick) Trace mg/dL (NEG) Urine Blood Negative (NEG) Urine Nitrite Negative (NEG) Urine Bilirubin Small (NEG) Urine Urobilinogen Dipstick 1.0 mg/dL (0.2 mg/dL) Urine Leukocyte Esterase Negative (NEG) Urine RBC Occ /HPF (0-2) Urine WBC Occ /HPF (0-4) Urine Squamous Epithelial Cells Occ /LPF Urine Bacteria 0 /HPF (0-FEW) Urine Hyaline Casts Many /HPF Urine Mucus Mod /LPF Sodium Level 137 mmol/L (136-145) Potassium Level 4.2 mmol/L (3.5-5.1) Chloride Level 101 mmol/L (98-107) Carbon Dioxide Level 28 mmol/L (21-32) Anion Gap 8 (6-14) Blood Urea Nitrogen 19 mg/dL (8-26) Creatinine 1.4 mg/dL (0.7-1.3) H Estimated GFR (Cockcroft-Gault) 62.6 BUN/Creatinine Ratio 14 (6-20) Glucose Level 211 mg/dL (70-99) H Calcium Level 9.2 mg/dL (8.5-10.1) Magnesium Level 2.1 mg/dL (1.8-2.4) Total Bilirubin 0.2 mg/dL (0.2-1.0) Aspartate Amino Transferase (AST) 22 U/L (15-37) Alanine Aminotransferase (ALT) 30 U/L (16-63) Alkaline Phosphatase 132 U/L (46-116) H Creatine Kinase 238 U/L (39-308) Creatine Kinase MB (Mass) 0.7 ng/mL (0.0-3.6) Creatine Kinase MB Relative Index 0.3 % (0-4) Troponin I Quantitative < 0.017 ng/mL (0.000-0.055) Total Protein 6.7 g/dL (6.4-8.2) Albumin 3.0 g/dL (3.4-5.0) L Albumin/Globulin Ratio 0.8 (1.0-1.7) L Laboratory Tests 10/12/18 19:05 Laboratory Tests 10/12/18 20:00 EKG EKG EKG taken on 10/12/2018 and 194. Sinus rhythm at 65 bpm. Normal EKG with no STEMI noted. Radiology/Procedures Radiology/Procedures [] Course & Med Decision Making Course & Med Decision Making Pertinent Labs and Imaging studies reviewed. This is a 58-year-old male with past medical history of hypertension, hyperlipidemia, and diabetes who presents today complaining of fatigue with onset of 4 days ago. He is also complaining of nausea, somnolence, leg cramps, and decreased appetite. He believes his symptoms are due to uncontrolled diabetes. His blood glucose was measured to be 235 during the interview. CBC, CMP, chest x-ray were ordered and he was started on IV fluids. Dragon Disclaimer Dragon Disclaimer This electronic medical record was generated, in whole or in part, using a voice recognition dictation system. Departure Departure Impression: Primary Impression: Fatigue Additional Impression: Hyperglycemia Disposition: HOME, SELF-CARE Condition: STABLE Referrals: MARIANELA BROOKE MD (PCP) Patient Instructions: Fatigue, Hyperglycemia, [id number] Problem Qualifiers Primary Impression: Fatigue Fatigue type: unspecified Qualified Codes: R53.83 - Other fatigue MARIANELA MOREIRA DO Oct 12, 2018 19:26
[2018-10-12 19:57] LABS: BILIRUBIN,URINE SMALL (NEG); CLARITY,URINE CLOUDY; COLOR,URINE AMBER; NITRITE,URINE NEGATIVE (NEG); PROTEIN,URINE NEGATIVE (NEG-TRACE)
[2018-10-12 20:09] LABS: BACTERIA,URINE 0 /HPF (0-FEW); RBC,URINE OCC /HPF (0-2); SQUAMOUS EPITHELIAL CELL,UR OCC /LPF; WBC,URINE OCC /HPF (0-4)
[2018-10-12 20:10] LABS: HYALINE CASTS, URINE MANY /HPF
[2018-10-12 20:30] LABS: CALCIUM 9.2 mg/dL (8.5-10.1); CREATININE 1.4 mg/dL (0.7-1.3); GFR 62.6; POTASSIUM 4.2 mmol/L (3.5-5.1)
[2018-10-12 20:37] LABS: ALBUMIN/GLOBULIN RATIO 0.8 (1.0-1.7); MAGNESIUM 2.1 mg/dL (1.8-2.4); TOTAL BILIRUBIN 0.2 mg/dL (0.2-1.0); TOTAL PROTEIN 6.7 g/dL (6.4-8.2)
[2018-10-12 21:57] VITALS: BP 146/72
--- NOTE | 2018-10-12 23:58 | RAD ---
EXAM: PA and Lateral Views of the Chest DATE: 10/12/2018 7:58 PM INDICATION: ER PATIENT. FATIGUE. Hx HTN, DIABETES. COMPARISON: 03/08/2017 FINDINGS/ IMPRESSION: Heart is not enlarged. Atherosclerotic calcifications of aorta are seen. Eventration right hemidiaphragm. No lobar consolidation. No pleural effusion or pneumothorax. Electronically signed by: Darron Paul MD (10/12/2018 11:55 PM) [facility]
--- NOTE | 2018-10-13 04:13 | EKG ---
[facility] [address] [place] [address] Test Date: 2018-10-12 Test Time: 19:42:19 Pat Name: MAYA HAWTHORNE Department: Room: Gender: M Manager Office: : 1960 Requested By: MARIANELA MOREIRA Order Number: [id number] Reading MD: Lorne Nelson MD Measurements Intervals [place] Rate: 67 P: 59 [place]: 186 QRS: 38 QRSD: 86 T: 25 QT: 378 QTc: 402 Interpretive Statements SINUS RHYTHM Electronically Signed On 10-14-2018 14:46:06 CDT by Lorne Nelson MD
== END 2018-10-12 22:45 | disposition home or self-care (01) ==
LOC: ER 18:26
DX: E11.65 Type 2 diabetes mellitus with hyperglycemia (principal); R53.83 Other fatigue; E03.9 Hypothyroidism, unspecified; R11.0 Nausea; E78.5 Hyperlipidemia, unspecified; I10 Essential (primary) hypertension; F17.200 Nicotine dependence, unspecified, uncomplicated; Z86.718 Personal history of other venous thrombosis and embolism; Z86.73 Personal history of transient ischemic attack (TIA), and cerebral infarction without residual deficits; Z90.89 Acquired absence of other organs
CPT/HCPCS: 36415; 71046; 80053; 81001; 82553; 82962; 83735; 84484; 85025; 93005; 96360; 99284; J7030

== ENCOUNTER 2018-12-24 10:43 | Observation (INO) | payer OTHER ==
[~2018-12-24] VITALS: Ht 180.3 cm; Wt 112.7 kg
[2018-12-24] MEDS ORDERED: IV NORMAL SALINE 1000ML BAG 1,000 ML IV ONE (11:00)
[2018-12-24] MEDS ORDERED: ONDANSETRON PF 4 MG/2 ML VIAL. IV ONE (11:00)
[2018-12-24 11:20] LABS: BASO # 0.1 x10^3/uL (0.0-0.2); BASO % 1 % (0-3); EOS # 0.1 x10^3/uL (0.0-0.7); EOS % 2 % (0-3); HEMATOCRIT 39.1 % (39.0-53.0); LYMPH # 3.5 x10^3/uL (1.0-4.8); LYMPH % 41 % (24-48); MEAN CORPUSCULAR HEMOGLOBIN 28 pg (25-35); MEAN CORPUSCULAR HGB CONC 33 g/dL (31-37); MEAN CORPUSCULAR VOLUME 84 fL (79-100); MONO # 0.9 x10^3/uL (0.0-1.1); MONO % 10 % (0-9); NEUT # 3.9 x10^3uL (1.8-7.7); NEUT % 46 % (31-73); PLATELET COUNT 343 x10^3/uL (140-400); RED BLOOD COUNT 4.69 x10^6/uL (4.30-5.70); RED CELL DISTRIBUTION WIDTH 17.8 % (11.5-14.5); WHITE BLOOD COUNT 8.5 x10^3/uL (4.0-11.0)
[2018-12-24 11:31] LABS: CALCIUM 9.6 mg/dL (8.5-10.1); CREATININE 1.3 mg/dL (0.7-1.3); GFR 68.1
[2018-12-24 11:36] LABS: ALBUMIN 3.5 g/dL (3.4-5.0); TOTAL BILIRUBIN 0.2 mg/dL (0.2-1.0); TOTAL PROTEIN 7.1 g/dL (6.4-8.2)
--- NOTE | 2018-12-24 11:41 | RAD ---
CT HEAD WO CONTRAST Indication: Altered mental status. Exposure: One or more of the following individualized dose reduction techniques were utilized for this examination: 1. Automated exposure control 2. Adjustment of the mA and/or kV according to patient size 3. Use of iterative reconstruction technique. Technique: Standard imaging without intravenous contrast. Comparison with March 09, 2017. No acute intracranial hemorrhage, mass effect, midline shift or abnormal extra-axial fluid collection. Mild enlargement of the occipital horn of the left lateral ventricle as compared with the right, and also as compared with the prior study. Elizabeth-white matter distinction is maintained. The visualized orbits appear symmetric. No prominent scalp swelling. There is what appears to be a tiny scalp lipoma in the left posterior parietal region just to the left of midline. Small subcentimeter soft tissue nodule just superficial to this. These appear unchanged. No acute bone abnormality. The visualized sinuses appear clear. IMPRESSION: 1. No evidence of acute intracranial hemorrhage. 2. Since the prior study, there has been mild focal asymmetric dilatation of the occipital horn of the left lateral ventricle, uncertain significance. Consider outpatient MR for further evaluation as indicated. Electronically signed by: Alfredo De La Garza MD (12/24/2018 11:37 AM) [facility]
--- NOTE | 2018-12-24 11:50 | RAD ---
CHEST AP ONLY History: Shortness of breath, syncope.. Comparison with 10/12/2018. The heart size is stable and not enlarged. No pneumothorax. No pleural effusion. No infiltrate. Bones appear intact. Degenerative changes at the acromioclavicular joints IMPRESSION: Stable exam, no consolidating infiltrate. Electronically signed by: Alfredo De La Garza MD (12/24/2018 11:47 AM) [facility]
--- NOTE | 2018-12-24 13:10 | PHYS DOC ---
Past Medical History Past Medical History: CVA, Diabetes-Type II, DVT, High Cholesterol, Hypertension, Stroke Past Surgical History: Appendectomy, Other Additional Past Surgical Histo: LEFT LEG FASCIOTOMY Alcohol Use: Occasionally Drug Use: None Adult General Chief Complaint Chief Complaint: SYNCOPE HPI HPI Patient is a 58 year old -[place] male with history of stroke, type 2 diabetes, hypertension, DVT presents with altered mental status. Patient was unresponsive while sitting in porch earlier this morning. Patient's family members found him unresponsive or able to rouse him with tactile stimulation. Patient slurred speech, confused complaining of somnolence. No seizure activity illness. Patient brought to ER by private vehicle and vomited in route. Patient hypotensive on ED arrival. He was immediately brought back to a room. Denies headache, change in vision, chest pain palpitations. Does report sweats and nausea and extreme fatigue. States he took his insulin this morning prior to breakfast. Blood sugar checked normal. No other acute symptoms or complaints.[] Review of Systems Review of Systems Review of symptoms as per history of present illness. All other review symptoms are negative. All other systems were reviewed and found to be within normal limits, except as documented in this note. Current Medications Current Medications Current Medications Medications (Trade) Dose Ordered Sig/Masoud Start Time Stop Time Status Last Admin Dose Admin Ondansetron HCl (Zofran) 4 mg PRN Q8HRS PRN 12/24/18 13:45 12/25/18 13:44 Sodium Chloride 1,000 ml @ 75 mls/hr [id number] 12/24/18 13:31 12/25/18 13:30 12/24/18 15:14 75 MLS/HR Allergies Allergies Allergies Coded Allergies Type Severity Reaction Last Updated Verified No Known Drug Allergies 09/05/14 No Physical Exam Physical Exam Constitutional: Somnolent, ill-appearing. [] HENT: Normocephalic, atraumatic, bilateral external ears normal, oropharynx moist, nose normal. [] Eyes: PERRLA, EOMI, conjunctiva normal. [] Neck: Normal range of motion, no tenderness. [] Cardiovascular:Heart rate regular rhythm, no murmur [] Lungs & Thorax: Bilateral breath sounds clear to auscultation.[] Abdomen: Bowel sounds normal, soft, tenderness. [] Skin: Warm, dry. [] Back: No tenderness. [] Extremities: No tenderness. [] Neurologic: Somnolent, normal motor function, normal sensory function, no focal deficits noted. [] Psychologic: Affect normal, judgement normal, mood normal. [] Current Patient Data Vital Signs Vital Signs Date Time Temp Pulse Resp B/P (MAP) Pulse Ox O2 Delivery O2 Flow Rate FiO2 12/24/18 13:53 58 11 153/84 (107) 99 Room Air 12/24/18 10:43 98.0 98.0 Lab Values Laboratory Tests Test 12/24/18 10:49 12/24/18 10:56 Glucose (Fingerstick) 165 mg/dL (70-99) H White Blood Count 8.5 x10^3/uL (4.0-11.0) Red Blood Count 4.69 x10^6/uL (4.30-5.70) Hemoglobin 13.0 g/dL (13.0-17.5) Hematocrit 39.1 % (39.0-53.0) Mean Corpuscular Volume 84 fL (79-100) Mean Corpuscular Hemoglobin 28 pg (25-35) Mean Corpuscular Hemoglobin Concent 33 g/dL (31-37) Red Cell Distribution Width 17.8 % (11.5-14.5) H Platelet Count 343 x10^3/uL (140-400) Neutrophils (%) (Auto) 46 % (31-73) Lymphocytes (%) (Auto) 41 % (24-48) Monocytes (%) (Auto) 10 % (0-9) H Eosinophils (%) (Auto) 2 % (0-3) Basophils (%) (Auto) 1 % (0-3) Neutrophils # (Auto) 3.9 x10^3uL (1.8-7.7) Lymphocytes # (Auto) 3.5 x10^3/uL (1.0-4.8) Monocytes # (Auto) 0.9 x10^3/uL (0.0-1.1) Eosinophils # (Auto) 0.1 x10^3/uL (0.0-0.7) Basophils # (Auto) 0.1 x10^3/uL (0.0-0.2) Sodium Level 139 mmol/L (136-145) Potassium Level 4.0 mmol/L (3.5-5.1) Chloride Level 100 mmol/L (98-107) Carbon Dioxide Level 24 mmol/L (21-32) Anion Gap 15 (6-14) H Blood Urea Nitrogen 17 mg/dL (8-26) Creatinine 1.3 mg/dL (0.7-1.3) Estimated GFR (Cockcroft-Gault) 68.1 BUN/Creatinine Ratio 13 (6-20) Glucose Level 173 mg/dL (70-99) H Calcium Level 9.6 mg/dL (8.5-10.1) Total Bilirubin 0.2 mg/dL (0.2-1.0) Aspartate Amino Transferase (AST) 19 U/L (15-37) Alanine Aminotransferase (ALT) 19 U/L (16-63) Alkaline Phosphatase 116 U/L (46-116) Troponin I Quantitative < 0.017 ng/mL (0.000-0.055) Total Protein 7.1 g/dL (6.4-8.2) Albumin 3.5 g/dL (3.4-5.0) Albumin/Globulin Ratio 1.0 (1.0-1.7) Thyroid Stimulating Hormone (TSH) 2.932 uIU/mL (0.358-3.74) Ethyl Alcohol Level < 10 mg/dL (0-10) Laboratory Tests 12/24/18 10:56 Laboratory Tests 12/24/18 10:56 EKG EKG [EKG: Reviewed] Radiology/Procedures Radiology/Procedures CT head: NAD CXR: NAD per radiology report.[] Course & Med Decision Making Course & Med Decision Making Pertinent Labs and Imaging studies reviewed. (See chart for details) [Patient observed and treated in the apartment. Blood pressure and nausea improved. Patient remains fatigued generalized weakness. Denies chest pain shortness of breath. Neurologic services. Will admit to the hospital with further evaluation. ] Dragon Disclaimer Dragon Disclaimer This electronic medical record was generated, in whole or in part, using a voice recognition dictation system. Departure Departure Impression: Primary Impression: Syncope Disposition: 09 ADMITTED INPATIENT Condition: STABLE Referrals: MARIANELA BROOKE MD (PCP) ANDRAE RAMSEY DO Dec 24, 2018 13:10
[2018-12-24] MEDS ORDERED: ONDANSETRON PF 4 MG/2 ML VIAL. IV PRN (13:45)
--- NOTE | 2018-12-24 13:46 | EKG ---
[facility] [address] [place] [address] Test Date: 2018-12-24 Test Time: 11:11:43 Pat Name: MAYA HAWTHORNE Department: Room: Gender: M Scale Agent: : [id number] Requested By: ANDRAE RAMSEY Order Number: [id number] Reading MD: Lorne Nelson MD Measurements Intervals [place] Rate: 62 P: 36 TN: 180 QRS: 34 QRSD: 88 T: 17 QT: 410 QTc: 422 Interpretive Statements SINUS RHYTHM Electronically Signed On 12-24-2018 17:44:00 CDT by Lorne Nelson MD
[2018-12-24] MEDS ORDERED: INSU100I13 SQ (14:35)
[2018-12-24] MEDS ORDERED: HYDR12.58 PO (14:36)
--- NOTE | 2018-12-24 14:40 | PDOC2 ---
KAYLIN MARKS FIRE EXTINGUISHER REPAIRER INSPECTOR 12/24/18 1440: CARDIAC CONSULT DATE OF CONSULT Date of Consult DATE: 12/24/18 TIME: 14:36 REASON FOR CONSULT Reason for Consult: syncope REFERRING PHYSICIAN Referring Physician: Pepito SOURCE Source: Chart review, Patient HISTORY OF PRESENT ILLNESS HISTORY OF PRESENT ILLNESS This is a pleasant 58 yo male admitted for complains of passing out. Pt ate ribs at 9 AM and also had his diabetes meds. He went outside the house to check on his grandchildren and his noted that the kids were crying and noted that the pt is not responding while sitting. Pt reports that he was feeling weak felt funny and the last thing he remembers was somebody trying to wake him up. No fall, he was sitting up. Approximately 5 minutes the duration of this event. He was mumbling when being woken up and noted him slurring his speech as well. When he was fully awake he started having nausea and vomiting multiple times. There was no symptoms of palpitations, chest pain or SOA. He however though has been feeling fatigue lately and has been having exertional dyspnea. Negative f or PND or orthopnea. He saw his PCP not too long ago and an outpt event monitor was ordered and placed for 2 weeks but unfortunately he removed this prior to this event. He has hx of DM2, HTN, and CVA. No unilateral weakness although his left leg bothers him due to past injury but otherwise there was no DAVIS, visual or auditory disturbances. No recent falls injury or concussion. His BG was not checked when this happened. No bowel and bladder incontinence and no hx of seizures. PAST MEDICAL HISTORY Past Medical History Cardiovascular: HTN, HLP CENTRAL NERVOUS SYSTEM: CVA GI: No pertinent hx Heme/Onc: No pertinent hx Hepatobiliary: No pertinent hx Psych: Depression Rheumatologic: No pertinent hx Infectious disease: No pertinent hx ENT: No pertinent hx Renal/: No pertinent hx Endocrine: Diabetes PAST SURGICAL HISTORY Past Surgical History Appendectomy, Tonsillectomy FAMILY HISTORY Family History: Hypertension SOCIAL HISTORY Smoke: <1 pack per day (>40 yrs) ALCOHOL: none Drugs: None Lives: with Family CURRENT MEDICATIONS CURRENT MEDICATIONS Current Medications Medications (Trade) Dose Ordered Sig/Masoud Route PRN Reason Start Time Stop Time Status Last Admin Dose Admin Sodium Chloride 1,000 ml @ 1,000 mls/hr 1X ONCE IV 12/24/18 11:00 12/24/18 11:59 DC 12/24/18 10:50 ALLERGIES ALLERGIES: Coded Allergies: No Known Drug Allergies (Unverified , 09/05/14) ROS Review of System 14 point ROS evaluated with pertinent positives noted per HPI PHYSICAL EXAM General: Alert, Oriented X3, Cooperative, No acute distress HEENT: Atraumatic, Mucous membr. moist/pink Lungs: Clear to auscultation, Normal air movement Heart: Regular rate (SR), Normal S1, Normal S2, Other (2/6 systolic murmur to LLS border) Abdomen: Soft, No tenderness Extremities: No cyanosis, No edema Skin: No breakdown, No significant lesion Neuro: Normal speech, Sensation intact Psych/Mental Status: Mental status NL, Mood NL MUSCULOSKELETAL: Osteoarthritic changes both hands VITALS VITALS Vital Signs Date Time Temp Pulse Resp B/P (MAP) Pulse Ox O2 Delivery O2 Flow Rate FiO2 12/24/18 12:23 56 122/60 (80) 100 Room Air 12/24/18 11:53 13 12/24/18 10:43 98.0 98.0 LABS Lab: Laboratory Tests Test 12/24/18 10:45 12/24/18 10:49 12/24/18 10:56 Urine Collection Type Unknown Urine Color Yellow Urine Clarity Clear Urine pH 7.0 Urine Specific [place] 1.020 Urine Protein Negative mg/dL (NEG-TRACE) Urine Glucose (UA) Negative mg/dL (NEG) Urine Ketones (Stick) Negative mg/dL (NEG) Urine Blood Negative (NEG) Urine Nitrite Negative (NEG) Urine Bilirubin Negative (NEG) Urine Urobilinogen Dipstick 0.2 mg/dL (0.2 mg/dL) Urine Leukocyte Esterase Negative (NEG) Urine RBC 0 /HPF (0-2) Urine WBC 0 /HPF (0-4) Urine Squamous Epithelial Cells Few /LPF Urine Bacteria 0 /HPF (0-FEW) Urine Mucus Mod /LPF Urine Opiates Screen Neg (NEG) Urine Methadone Screen Neg (NEG) Urine Barbiturates Neg (NEG) Urine Phencyclidine Screen Neg (NEG) Urine Amphetamine/Methamphetamine Neg (NEG) Urine Benzodiazepines Screen Neg (NEG) Urine Cocaine Screen Neg (NEG) Urine Cannabinoids Screen Neg (NEG) Urine Ethyl Alcohol Neg (NEG) Glucose (Fingerstick) 165 mg/dL (70-99) White Blood Count 8.5 x10^3/uL (4.0-11.0) Red Blood Count 4.69 x10^6/uL (4.30-5.70) Hemoglobin 13.0 g/dL (13.0-17.5) Hematocrit 39.1 % (39.0-53.0) Mean Corpuscular Volume 84 fL (79-100) Mean Corpuscular Hemoglobin 28 pg (25-35) Mean Corpuscular Hemoglobin Concent 33 g/dL (31-37) Red Cell Distribution Width 17.8 % (11.5-14.5) Platelet Count 343 x10^3/uL (140-400) Neutrophils (%) (Auto) 46 % (31-73) Lymphocytes (%) (Auto) 41 % (24-48) Monocytes (%) (Auto) 10 % (0-9) Eosinophils (%) (Auto) 2 % (0-3) Basophils (%) (Auto) 1 % (0-3) Neutrophils # (Auto) 3.9 x10^3uL (1.8-7.7) Lymphocytes # (Auto) 3.5 x10^3/uL (1.0-4.8) Monocytes # (Auto) 0.9 x10^3/uL (0.0-1.1) Eosinophils # (Auto) 0.1 x10^3/uL (0.0-0.7) Basophils # (Auto) 0.1 x10^3/uL (0.0-0.2) Sodium Level 139 mmol/L (136-145) Potassium Level 4.0 mmol/L (3.5-5.1) Chloride Level 100 mmol/L (98-107) Carbon Dioxide Level 24 mmol/L (21-32) Anion Gap 15 (6-14) Blood Urea Nitrogen 17 mg/dL (8-26) Creatinine 1.3 mg/dL (0.7-1.3) Estimated GFR (Cockcroft-Gault) 68.1 BUN/Creatinine Ratio 13 (6-20) Glucose Level 173 mg/dL (70-99) Calcium Level 9.6 mg/dL (8.5-10.1) Total Bilirubin 0.2 mg/dL (0.2-1.0) Aspartate Amino Transf (AST/SGOT) 19 U/L (15-37) Alanine Aminotransferase (ALT/SGPT) 19 U/L (16-63) Alkaline Phosphatase 116 U/L (46-116) Troponin I Quantitative < 0.017 ng/mL (0.000-0.055) Total Protein 7.1 g/dL (6.4-8.2) Albumin 3.5 g/dL (3.4-5.0) Albumin/Globulin Ratio 1.0 (1.0-1.7) Thyroid Stimulating Hormone (TSH) 2.932 uIU/mL (0.358-3.74) Ethyl Alcohol Level < 10 mg/dL (0-10) ECHOCARDIOGRAM ECHOCARDIOGRAM <Conclusion> The left ventricular systolic function is normal. The Ejection Fraction is 55-60%. There is normal LV segmental wall motion. Transmitral Doppler flow pattern is Grade I-abnormal relaxation pattern. Doppler and Color-flow revealed trace mitral regurgitation. The PA pressure was estimated at 25 mmHg. There is no evidence of significant pericardial effusion. Injection of bubbles documented no interatrial shunt. DATE: 03/09/17 1401 ASSESSMENT/PLAN ASSESSMENT/PLAN 1. Syncope: multiple differentials including hypoglycemic reaction, TIA, arrhythmias 2. DM2: uses amaryl and insulin 3. HTN: controlled 4. H/o CVA 5. HLP Recommendations 1. Has zio patch, and unfortunately he removed this prior to his syncopal spell. Discussed with spouse to mail back the patch today for data retrieval. 2. Continue ASA and sceondray prevention measures. Will check A1C and TSH 3. Also outpt NOLBERTO workup is a consideration 4. TTE and carotid Doppler. 5. outpt MPI has bee ordered for 01/14 due to BAIRD, fatigue and noted exertional CP that he denied for me Expedited ischemic workup pending TTE, event monitor result. ELIJAH CONNER MD 12/24/18 1742: CARDIAC CONSULT ASSESSMENT/PLAN ASSESSMENT/PLAN Pt. seen and examined. 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 No clear cardiac source thus far. Continue w/u as noted above. Thanks. KAYLIN MARKS APRN Dec 24, 2018 14:40 ELIJAH CONNER MD Dec 24, 2018 17:42
[2018-12-24 15:04] LABS: BILIRUBIN,URINE NEGATIVE (NEG); CLARITY,URINE CLEAR; COLOR,URINE YELLOW; NITRITE,URINE NEGATIVE (NEG); PROTEIN,URINE NEGATIVE (NEG-TRACE)
[2018-12-24 15:11] LABS: AMPHETAMINE/METHAMPHETAMINE POS (NEG); BARBITURATES NEG (NEG); BENZODIAZEPINES NEG (NEG); CANNABINOIDS POS (NEG); COCAINE NEG (NEG); METHADONE NEG (NEG); OPIATES NEG (NEG); PHENCYCLIDINE NEG (NEG)
[2018-12-24 15:12] LABS: BACTERIA,URINE 0 /HPF (0-FEW); HYALINE CASTS, URINE MODERATE /HPF; RBC,URINE 0 /HPF (0-2); WBC,URINE RARE /HPF (0-4)
[2018-12-24] MEDS: IV NORMAL SALINE 1000ML BAG 1,000 ML IV SCH (15:14)
[2018-12-24 16:12] VITALS: BP 127/67
--- NOTE | 2018-12-24 17:07 | CARD ---
MR#: [id number] Date of Study: 12/24/2018 Ordering Physician: KAYLIN MARKS, Referring Physician: MARIANELA BROOKE, Tech: Smitha Denise APPROVED REPORT EXAM: Two-dimensional and M-mode echocardiogram with Doppler and color Doppler. Other Information Quality : AverageHR: 53bpm INDICATION Syncope RISK FACTORS Hypertension Hyperlipidemia Diabetes Smoking 2D DIMENSIONS RVDd3.1 (2.9-3.5cm)Left Atrium(2D)3.0 (1.6-4.0cm) IVSd1.0 (0.7-1.1cm)Aortic Root(2D)2.9 (2.0-3.7cm) LVDd4.4 (3.9-5.9cm)LVOT Diameter2.2 (1.8-2.4cm) PWd1.2 (0.7-1.1cm)LVDs2.4 (2.5-4.0cm) FS (%) 45.2 %SV65.7 ml LVEF(%)76.7 (>50%) Aortic Valve AoV Peak Luke.128.7cm/sAoV VTI25.9cm AO Peak GR.6.6mmHgLVOT VTI 21.20cm AO Mean GR.4mmHg Mitral Valve MV E Xxjxsxsc13.3cm/sMV DECEL [id number] MV A Akwwmjlo65.0cm/sE/A Ratio1.2 TDI Lateral E' P. V10.36cm/sMedial E' P. V11.01cm/s E/Lateral E'7.6E/Medial E'7.1 Tricuspid Valve TR P. Wviccmza548zk/sRAP RXLJMBUP1xrEt TR Peak Gr.93ftWsJNTY10uySm Pulmonary Vein S1 Cyycuctv51.6cm/sS2 Eoinvxvr04.49cm/s D2 Tvcrypue12.5cm/sPVa [id number] LEFT VENTRICLE The left ventricle is normal size. There is borderline concentric left ventricular hypertrophy. The l eft ventricular systolic function is low normal. EF 50-55% There is normal LV segmental wall motion. The left ventricular diastolic function and filling is normal for age. RIGHT VENTRICLE The right ventricle is normal size. There is normal right ventricular wall thickness. The right ventr icular systolic function is normal. ATRIA The left atrium size is normal. The right atrium size is normal. The interatrial septum is intact wit h no evidence for an atrial septal defect or patent foramen ovale as noted on 2-D or Doppler imaging. AORTIC VALVE The aortic valve is thickened but opens well. Doppler and Color Flow revealed no significant aortic r egurgitation. There is no significant aortic valvular stenosis. MITRAL VALVE The mitral valve is normal in structure and function. There is no evidence of mitral valve prolapse. There is no mitral valve stenosis. Doppler and Color Flow revealed no mitral valve regurgitation note d. TRICUSPID VALVE The tricuspid valve is normal in structure and function. Doppler and Color Flow revealed no tricuspid valve regurgitation noted. There is no tricuspid valve prolapse or vegetation. There is no tricuspid valve stenosis. PULMONIC VALVE The pulmonic valve is not well visualized. Doppler and Color Flow revealed no pulmonic valvular regur gitation. There is no pulmonic valvular stenosis. GREAT VESSELS The aortic root is normal in size. The IVC is normal in size and collapses >50% with inspiration. PERICARDIAL EFFUSION There is no evidence of significant pericardial effusion. Critical Notification Critical Value: No <Conclusion> The left ventricular systolic function is low normal. EF 50-55% There is normal LV segmental wall motion. Signed by : Lorne Nelson, Electronically Approved : 12/24/2018 17:07:07
[2018-12-24] MEDS ORDERED: DEXTROSE 50% 25 GM / 50ML DISP.SYRIN. IV PRN (19:00)
[2018-12-24 19:31] VITALS: BP 134/63
[2018-12-24] MEDS ORDERED: ATORVASTATIN CALCIUM 40 MG TABLET. PO SCH (21:00)
[2018-12-24 23:39] VITALS: BP 134/65
[2018-12-24 23:40] VITALS: BP 120/79
[2018-12-24 23:41] VITALS: BP 140/87
[2018-12-25 03:50] VITALS: BP 125/73
[2018-12-25] MEDS: IV NORMAL SALINE 1000ML BAG 1,000 ML IV SCH (05:13)
[2018-12-25 06:13] LABS: BASO % 1 % (0-3); EOS # 0.1 x10^3/uL (0.0-0.7); EOS % 2 % (0-3); HEMATOCRIT 37.9 % (39.0-53.0); HEMOGLOBIN 12.6 g/dL (13.0-17.5); LYMPH # 2.7 x10^3/uL (1.0-4.8); LYMPH % 36 % (24-48); MEAN CORPUSCULAR HEMOGLOBIN 28 pg (25-35); MEAN CORPUSCULAR HGB CONC 33 g/dL (31-37); MEAN CORPUSCULAR VOLUME 83 fL (79-100); MONO # 0.8 x10^3/uL (0.0-1.1); MONO % 11 % (0-9); NEUT # 3.8 x10^3uL (1.8-7.7); NEUT % 51 % (31-73); PLATELET COUNT 296 x10^3/uL (140-400); RED BLOOD COUNT 4.54 x10^6/uL (4.30-5.70); RED CELL DISTRIBUTION WIDTH 17.7 % (11.5-14.5); WHITE BLOOD COUNT 7.5 x10^3/uL (4.0-11.0)
[2018-12-25 06:33] LABS: CALCIUM 9.1 mg/dL (8.5-10.1); CREATININE 0.9 mg/dL (0.7-1.3); GFR 104.2; POTASSIUM 3.9 mmol/L (3.5-5.1)
[2018-12-25 07:42] VITALS: BP 124/59
[2018-12-25 07:43] VITALS: BP 141/72
[2018-12-25 07:44] VITALS: BP 152/87
[2018-12-25] MEDS ORDERED: CLOPIDOGREL BISULFATE 75 MG TABLET PO SCH (08:00)
[2018-12-25] MEDS: INSULIN LISPRO 300 UNITS/3 ML INSULN.PEN. SQ SCH ×2 (08:12→12:00)
[2018-12-25] MEDS ORDERED: ASPIRIN 325 MG TABLET PO SCH (09:00)
--- NOTE | 2018-12-25 09:56 | PDOC1 ---
History and Physical Date of Admission Date of Admission 12/24/18 Identification/Chief Complaint Chief Complaint syncopal episode followed by nausea and vomiting Source Source: Caregiver, Chart review, Patient History of Present Illness History of Present Illness He was home sitting in a chair and had a syncopal episode, brought by family to ER, no obvious cause so far and feels normal. He was initially hypotensive in ER and given fluids which were continued overnight. He has a hx of HTN, prior CVA, DM2, DVT but was not anemic and his blood sugar was not low, he denies any abdominal pain but he believes some BBQ ribs he ate may have contributed to his spell. He was not noted to have any seizure activity and did not have any colicky type pain prior that he recalls. His tox screen was positive for meth and marijuana Past Medical History Cardiovascular: HTN Pulmonary: Bronchitis CENTRAL NERVOUS SYSTEM: CVA GI: No pertinent hx Heme/Onc: No pertinent hx Hepatobiliary: No pertinent hx Psych: Depression Rheumatologic: No pertinent hx Infectious disease: No pertinent hx Renal/: No pertinent hx Endocrine: Diabetes Past Surgical History Past Surgical History: Appendectomy, Tonsillectomy Family History Family History: Hypertension Social History Smoke: <1 pack per day (>40 yrs) ALCOHOL: none Drugs: None Current Problem List Problem List Problems Medical Problems: (1) Syncope Status: Acute Current Medications Current Medications Current Medications Medications (Trade) Dose Ordered Sig/Masoud Start Time Stop Time Status Last Admin Dose Admin Aspirin (Erwin Aspirin) 325 mg DAILY 12/25/18 09:00 12/25/18 08:02 325 MG Atorvastatin Calcium (Lipitor) 40 mg HS 12/24/18 21:00 Clopidogrel Bisulfate (Plavix) 75 mg DAILYWBKFT 12/25/18 08:00 12/25/18 08:02 75 MG Dextrose (Dextrose 50%-Water Syringe) 12.5 gm PRN Q15MIN PRN 12/24/18 19:00 Insulin Human Lispro (HumaLOG) 0-7 UNITS TIDWMEALS 12/25/18 08:00 12/25/18 08:12 4 UNITS Ondansetron HCl (Zofran) 4 mg PRN Q8HRS PRN 12/24/18 13:45 12/25/18 13:44 Sodium Chloride 1,000 ml @ 75 mls/hr [id number] 12/24/18 13:31 12/25/18 13:30 12/25/18 05:13 75 MLS/HR Allergies Allergies Allergies Coded Allergies Type Severity Reaction Last Updated Verified No Known Drug Allergies 09/05/14 No ROS Review of System CONSTITUTIONAL: No fever or chills EYES: No recent changes SKIN: No rash or itching CARDIOVASCULAR: No chest pain, palpitations, or edema RESPIRATORY: No SOB or cough GASTROINTESTINAL: + nausea, vomiting yesterday only NEUROLOGICAL: hx of foot drop since service and after CVA ENDOCRINE: Diabetes, sugars generally controlled GENITOURINARY: No urgency or frequency of urination MUSCULOSKELETAL: No back pain or joint pain LYMPHATICS: No enlarged lymph nodes PSYCHIATRIC: No anxiety or depression Physical Exam Physical Exam GEN.: No apparent distress. Alert and oriented. HEENT: Head is normocephalic, atraumatic NECK: Supple. LUNGS: Clear to auscultation. HEART: RRR, S1, S2 present. Peripheral pulses intact ABDOMEN: Soft, nontender. Positive bowel sounds. EXTREMITIES: Without any cyanosis. NEUROLOGIC: Normal speech, normal tone PSYCHIATRIC: Normal affect, normal mood. SKIN: No ulcerations Vitals Vitals Vital Signs Date Time Temp Pulse Resp B/P (MAP) Pulse Ox O2 Delivery O2 Flow Rate FiO2 12/25/18 07:44 65 152/87 (108) 12/25/18 07:42 98.7 20 98 Room Air 98.7 Labs Labs Laboratory Tests Test 12/24/18 10:49 12/24/18 10:56 12/24/18 14:41 12/24/18 16:15 Glucose (Fingerstick) 165 mg/dL (70-99) White Blood Count 8.5 x10^3/uL (4.0-11.0) Red Blood Count 4.69 x10^6/uL (4.30-5.70) Hemoglobin 13.0 g/dL (13.0-17.5) Hematocrit 39.1 % (39.0-53.0) Mean Corpuscular Volume 84 fL (79-100) Mean Corpuscular Hemoglobin 28 pg (25-35) Mean Corpuscular Hemoglobin Concent 33 g/dL (31-37) Red Cell Distribution Width 17.8 % (11.5-14.5) Platelet Count 343 x10^3/uL (140-400) Neutrophils (%) (Auto) 46 % (31-73) Lymphocytes (%) (Auto) 41 % (24-48) Monocytes (%) (Auto) 10 % (0-9) Eosinophils (%) (Auto) 2 % (0-3) Basophils (%) (Auto) 1 % (0-3) Neutrophils # (Auto) 3.9 x10^3uL (1.8-7.7) Lymphocytes # (Auto) 3.5 x10^3/uL (1.0-4.8) Monocytes # (Auto) 0.9 x10^3/uL (0.0-1.1) Eosinophils # (Auto) 0.1 x10^3/uL (0.0-0.7) Basophils # (Auto) 0.1 x10^3/uL (0.0-0.2) Sodium Level 139 mmol/L (136-145) Potassium Level 4.0 mmol/L (3.5-5.1) Chloride Level 100 mmol/L (98-107) Carbon Dioxide Level 24 mmol/L (21-32) Anion Gap 15 (6-14) Blood Urea Nitrogen 17 mg/dL (8-26) Creatinine 1.3 mg/dL (0.7-1.3) Estimated GFR (Cockcroft-Gault) 68.1 BUN/Creatinine Ratio 13 (6-20) Glucose Level 173 mg/dL (70-99) Calcium Level 9.6 mg/dL (8.5-10.1) Total Bilirubin 0.2 mg/dL (0.2-1.0) Aspartate Amino Transf (AST/SGOT) 19 U/L (15-37) Alanine Aminotransferase (ALT/SGPT) 19 U/L (16-63) Alkaline Phosphatase 116 U/L (46-116) Troponin I Quantitative < 0.017 ng/mL (0.000-0.055) < 0.017 ng/mL (0.000-0.055) Total Protein 7.1 g/dL (6.4-8.2) Albumin 3.5 g/dL (3.4-5.0) Albumin/Globulin Ratio 1.0 (1.0-1.7) Thyroid Stimulating Hormone (TSH) 2.932 uIU/mL (0.358-3.74) Ethyl Alcohol Level < 10 mg/dL (0-10) Urine Collection Type Void Urine Color Yellow Urine Clarity Clear Urine pH 5.0 Urine Specific [place] 1.025 Urine Protein Negative mg/dL (NEG-TRACE) Urine Glucose (UA) Negative mg/dL (NEG) Urine Ketones (Stick) Negative mg/dL (NEG) Urine Blood Negative (NEG) Urine Nitrite Negative (NEG) Urine Bilirubin Negative (NEG) Urine Urobilinogen Dipstick 1.0 mg/dL (0.2 mg/dL) Urine Leukocyte Esterase Negative (NEG) Urine RBC 0 /HPF (0-2) Urine WBC Rare /HPF (0-4) Urine Bacteria 0 /HPF (0-FEW) Urine Hyaline Casts Moderate /HPF Urine Mucus Mod /LPF Urine Opiates Screen Neg (NEG) Urine Methadone Screen Neg (NEG) Urine Barbiturates Neg (NEG) Urine Phencyclidine Screen Neg (NEG) Urine Amphetamine/Methamphetamine Pos (NEG) Urine Benzodiazepines Screen Neg (NEG) Urine Cocaine Screen Neg (NEG) Urine Cannabinoids Screen Pos (NEG) Urine Ethyl Alcohol Neg (NEG) Test 12/24/18 17:12 12/24/18 19:20 12/24/18 20:26 12/25/18 04:35 Glucose (Fingerstick) 97 mg/dL (70-99) 150 mg/dL (70-99) Troponin I Quantitative < 0.017 ng/mL (0.000-0.055) White Blood Count 7.5 x10^3/uL (4.0-11.0) Red Blood Count 4.54 x10^6/uL (4.30-5.70) Hemoglobin 12.6 g/dL (13.0-17.5) Hematocrit 37.9 % (39.0-53.0) Mean Corpuscular Volume 83 fL (79-100) Mean Corpuscular Hemoglobin 28 pg (25-35) Mean Corpuscular Hemoglobin Concent 33 g/dL (31-37) Red Cell Distribution Width 17.7 % (11.5-14.5) Platelet Count 296 x10^3/uL (140-400) Neutrophils (%) (Auto) 51 % (31-73) Lymphocytes (%) (Auto) 36 % (24-48) Monocytes (%) (Auto) 11 % (0-9) Eosinophils (%) (Auto) 2 % (0-3) Basophils (%) (Auto) 1 % (0-3) Neutrophils # (Auto) 3.8 x10^3uL (1.8-7.7) Lymphocytes # (Auto) 2.7 x10^3/uL (1.0-4.8) Monocytes # (Auto) 0.8 x10^3/uL (0.0-1.1) Eosinophils # (Auto) 0.1 x10^3/uL (0.0-0.7) Basophils # (Auto) 0.0 x10^3/uL (0.0-0.2) Sodium Level 138 mmol/L (136-145) Potassium Level 3.9 mmol/L (3.5-5.1) Chloride Level 104 mmol/L (98-107) Carbon Dioxide Level 25 mmol/L (21-32) Anion Gap 9 (6-14) Blood Urea Nitrogen 13 mg/dL (8-26) Creatinine 0.9 mg/dL (0.7-1.3) Estimated GFR (Cockcroft-Gault) 104.2 Glucose Level 100 mg/dL (70-99) Calcium Level 9.1 mg/dL (8.5-10.1) Test 12/25/18 07:12 Glucose (Fingerstick) 212 mg/dL (70-99) Laboratory Tests Test 12/24/18 10:49 12/24/18 10:56 12/24/18 14:41 12/24/18 16:15 Glucose (Fingerstick) 165 mg/dL (70-99) White Blood Count 8.5 x10^3/uL (4.0-11.0) Red Blood Count 4.69 x10^6/uL (4.30-5.70) Hemoglobin 13.0 g/dL (13.0-17.5) Hematocrit 39.1 % (39.0-53.0) Mean Corpuscular Volume 84 fL (79-100) Mean Corpuscular Hemoglobin 28 pg (25-35) Mean Corpuscular Hemoglobin Concent 33 g/dL (31-37) Red Cell Distribution Width 17.8 % (11.5-14.5) Platelet Count 343 x10^3/uL (140-400) Neutrophils (%) (Auto) 46 % (31-73) Lymphocytes (%) (Auto) 41 % (24-48) Monocytes (%) (Auto) 10 % (0-9) Eosinophils (%) (Auto) 2 % (0-3) Basophils (%) (Auto) 1 % (0-3) Neutrophils # (Auto) 3.9 x10^3uL (1.8-7.7) Lymphocytes # (Auto) 3.5 x10^3/uL (1.0-4.8) Monocytes # (Auto) 0.9 x10^3/uL (0.0-1.1) Eosinophils # (Auto) 0.1 x10^3/uL (0.0-0.7) Basophils # (Auto) 0.1 x10^3/uL (0.0-0.2) Sodium Level 139 mmol/L (136-145) Potassium Level 4.0 mmol/L (3.5-5.1) Chloride Level 100 mmol/L (98-107) Carbon Dioxide Level 24 mmol/L (21-32) Anion Gap 15 (6-14) Blood Urea Nitrogen 17 mg/dL (8-26) Creatinine 1.3 mg/dL (0.7-1.3) Estimated GFR (Cockcroft-Gault) 68.1 BUN/Creatinine Ratio 13 (6-20) Glucose Level 173 mg/dL (70-99) Calcium Level 9.6 mg/dL (8.5-10.1) Total Bilirubin 0.2 mg/dL (0.2-1.0) Aspartate Amino Transf (AST/SGOT) 19 U/L (15-37) Alanine Aminotransferase (ALT/SGPT) 19 U/L (16-63) Alkaline Phosphatase 116 U/L (46-116) Troponin I Quantitative < 0.017 ng/mL (0.000-0.055) < 0.017 ng/mL (0.000-0.055) Total Protein 7.1 g/dL (6.4-8.2) Albumin 3.5 g/dL (3.4-5.0) Albumin/Globulin Ratio 1.0 (1.0-1.7) Thyroid Stimulating Hormone (TSH) 2.932 uIU/mL (0.358-3.74) Ethyl Alcohol Level < 10 mg/dL (0-10) Urine Collection Type Void Urine Color Yellow Urine Clarity Clear Urine pH 5.0 Urine Specific [place] 1.025 Urine Protein Negative mg/dL (NEG-TRACE) Urine Glucose (UA) Negative mg/dL (NEG) Urine Ketones (Stick) Negative mg/dL (NEG) Urine Blood Negative (NEG) Urine Nitrite Negative (NEG) Urine Bilirubin Negative (NEG) Urine Urobilinogen Dipstick 1.0 mg/dL (0.2 mg/dL) Urine Leukocyte Esterase Negative (NEG) Urine RBC 0 /HPF (0-2) Urine WBC Rare /HPF (0-4) Urine Bacteria 0 /HPF (0-FEW) Urine Hyaline Casts Moderate /HPF Urine Mucus Mod /LPF Urine Opiates Screen Neg (NEG) Urine Methadone Screen Neg (NEG) Urine Barbiturates Neg (NEG) Urine Phencyclidine Screen Neg (NEG) Urine Amphetamine/Methamphetamine Pos (NEG) Urine Benzodiazepines Screen Neg (NEG) Urine Cocaine Screen Neg (NEG) Urine Cannabinoids Screen Pos (NEG) Urine Ethyl Alcohol Neg (NEG) Test 12/24/18 17:12 12/24/18 19:20 12/24/18 20:26 12/25/18 04:35 Glucose (Fingerstick) 97 mg/dL (70-99) 150 mg/dL (70-99) Troponin I Quantitative < 0.017 ng/mL (0.000-0.055) White Blood Count 7.5 x10^3/uL (4.0-11.0) Red Blood Count 4.54 x10^6/uL (4.30-5.70) Hemoglobin 12.6 g/dL (13.0-17.5) Hematocrit 37.9 % (39.0-53.0) Mean Corpuscular Volume 83 fL (79-100) Mean Corpuscular Hemoglobin 28 pg (25-35) Mean Corpuscular Hemoglobin Concent 33 g/dL (31-37) Red Cell Distribution Width 17.7 % (11.5-14.5) Platelet Count 296 x10^3/uL (140-400) Neutrophils (%) (Auto) 51 % (31-73) Lymphocytes (%) (Auto) 36 % (24-48) Monocytes (%) (Auto) 11 % (0-9) Eosinophils (%) (Auto) 2 % (0-3) Basophils (%) (Auto) 1 % (0-3) Neutrophils # (Auto) 3.8 x10^3uL (1.8-7.7) Lymphocytes # (Auto) 2.7 x10^3/uL (1.0-4.8) Monocytes # (Auto) 0.8 x10^3/uL (0.0-1.1) Eosinophils # (Auto) 0.1 x10^3/uL (0.0-0.7) Basophils # (Auto) 0.0 x10^3/uL (0.0-0.2) Sodium Level 138 mmol/L (136-145) Potassium Level 3.9 mmol/L (3.5-5.1) Chloride Level 104 mmol/L (98-107) Carbon Dioxide Level 25 mmol/L (21-32) Anion Gap 9 (6-14) Blood Urea Nitrogen 13 mg/dL (8-26) Creatinine 0.9 mg/dL (0.7-1.3) Estimated GFR (Cockcroft-Gault) 104.2 Glucose Level 100 mg/dL (70-99) Calcium Level 9.1 mg/dL (8.5-10.1) Test 12/25/18 07:12 Glucose (Fingerstick) 212 mg/dL (70-99) Images Images CT HEAD WO CONTRAST Indication: Altered mental status. Exposure: One or more of the following individualized dose reduction techniques were utilized for this examination: 1. Automated exposure control 2. Adjustment of the mA and/or kV according to patient size 3. Use of iterative reconstruction technique. Technique: Standard imaging without intravenous contrast. Comparison with March 09, 2017. No acute intracranial hemorrhage, mass effect, midline shift or abnormal extra-axial fluid collection. Mild enlargement of the occipital horn of the left lateral ventricle as compared with the right, and also as compared with the prior study. Elizabeth-white matter distinction is maintained. The visualized orbits appear symmetric. No prominent scalp swelling. There is what appears to be a tiny scalp lipoma in the left posterior parietal region just to the left of midline. Small subcentimeter soft tissue nodule just superficial to this. These appear unchanged. No acute bone abnormality. The visualized sinuses appear clear. IMPRESSION: 1. No evidence of acute intracranial hemorrhage. 2. Since the prior study, there has been mild focal asymmetric dilatation of the occipital horn of the left lateral ventricle, uncertain significance. Consider outpatient MR for further evaluation as indicated. CHEST AP ONLY History: Shortness of breath, syncope.. Comparison with 10/12/2018. The heart size is stable and not enlarged. No pneumothorax. No pleural effusion. No infiltrate. Bones appear intact. Degenerative changes at the acromioclavicular joints IMPRESSION: Stable exam, no consolidating infiltrate. VTE Prophylaxis Ordered VTE Prophylaxis Devices: Yes VTE Pharmacological Prophylaxi: Yes Assessment/Plan Assessment/Plan Syncope - likely vasovagal as it was followed by nausea and vomiting -BP meds held overnight, cardiology has been following him as OP and just had event monitor removed which has not yet been read Hypotension - likely as a result of vasovagal - he has been hydrated and now hypertensive - resume home meds HTN - resume home meds Hx of DVT Hx of CVA - carotid doppler pending, on Plavix type 2 diabetes without evidence of hypoglycemia - metfromin held and on SSI HLP - atorvastatin Drug use - positive for meth and marijuana on tox screen Giovanni REGALADO MD Dec 25, 2018 09:56
[2018-12-25 11:00] VITALS: BP 129/81
[2018-12-25] MEDS ORDERED: LISINOPRIL 20 MG TABLET PO SCH (11:00)
[2018-12-25] MEDS ORDERED: hydroCHLOROthiazide 12.5 MG CAPSULE PO SCH (11:00)
[2018-12-25] MEDS ORDERED: metFORMIN 500 MG TABLET PO SCH (11:00)
[2018-12-25] MEDS ORDERED: INSULIN LISPRO 300 UNITS/3 ML INSULN.PEN. SQ SCH (12:00)
[2018-12-25 12:51] VITALS: BP 129/81
--- NOTE | 2018-12-25 13:17 | PDOC3 ---
Discharge Summary [facility] Date of Admission: Dec 24, 2018 Discharge Date: Dec 25, 2018 Admitting Diagnosis syncope Final Diagnosis (1) Syncope -vasovagal CONSULTS [place] Procedures none Brief Hospital Course Mr. Velasquez is a 58 old who presented by private vehicle after a syncopal episode at home and admitted but hospital course was unremarkable for any cardiac arrhythmia, his blood sugar was controlled. He was initially hypotensive and received a fluid bolus. He vomited on the way to the hospital but has been eating well since, he had eaten BBQ ribs prior to the syncopal ep isode. He mailed in his event monitor yesterday and will f/u with cardiology regarding results. He did unexpectedly have methamphetamines present of a toxicology screen Patient History: Family history: Diabetes mellitus (situation) Family history: Hypertension (situation) Disposition home CONDITION AT DISCHARGE: Improved, Stable Diet cardiac, diabetic Scheduled Aspirin (Aspirin), 1 TAB PO DAILY, (Reported) Atorvastatin Calcium (Lipitor), 40 MG PO HS Clopidogrel Bisulfate (Clopidogrel), 75 MG PO DAILYWBKFT Hydrochlorothiazide (Hydrochlorothiazide Tablet), 12.5 MG PO DAILY, (Reported) Insulin Aspart (Novolog Flexpen), 7 UNITS SQ TIDWMEALS Insulin Glargine,Hum.rec.anlog (Lantus Solostar), 9 UNIT SQ QHS, (Reported) Lisinopril (Lisinopril), 40 MG PO DAILY Metformin Hcl (Glucophage), 500 MG PO BIDWMEALS Follow Up 1-2 weeks Giovanni REGALADO MD Dec 25, 2018 13:17
--- NOTE | 2018-12-25 16:46 | NUR ---
Discharge Note: MAYA HAWTHORNE [address] Discharge instructions and discharge home medications reviewed with patient and a copy given. All questions have been answered and understanding verbalized. The following instructions and handouts were given: Continue home meds as directed. FF up with Cardiology for outpx MPI on 01/14, appointment arranged, phone number given. FF up with PCP in 1 to 2 weeks. Discontinued lines and drains: peripheral IV intact, patient tolerated removal, no complications noted. Patient discharged to home with self-care accompanied by patient's spouse via wheelchair at 1531.
[2018-12-25] MEDS ORDERED: INSULIN GLARGINE 300 UNITS/3 ML INSULN.PEN. SQ SCH (21:00)
--- NOTE | 2018-12-27 08:48 | RAD ---
MR#: [id number] Date of Study: 12/24/2018 Ordering Physician: KAYLIN MARKS, Referring Physician: MARIANELA BROOKE, Tech: Zenaida Mayer RVT, BASSEM APPROVED REPORT Patient Location: IN-PATIENT Laterality:Bilateral Indications Syncope CVA/TIA: Risk Factors Hypertension: TIA/CVA History Diabetes Smoking Doppler Spectral Velocity Analysis Right Left pCCA 118/25 cm/spCCA 119/26 cm/s mCCA 99/20 cm/smCCA 92/18 cm/s dCCA 98/22 cm/sdCCA 65/16 cm/s ECA 79/ cm/sECA 89/11 cm/s pICA 83/26 cm/spICA 71/18 cm/s Johnny 97/33 cm/smICA 92/28 cm/s dICA 91/24 cm/sdICA 86/33 cm/s Vert. 10/ cm/sVert. 32/ cm/s ICA/CCA 0.82ICA/CCA 0.77 Findings Grayscale images of the bilateral carotid bulbs demonstrates mild to moderate plaque of overall less than 50%. Spectral waveforms in the proximal, mid and distal internal carotid vessels bilaterally are within no rmal limits. Overall 0 to less than 50% stenosis. Normal ICA to CCA ratios bilaterally. Bilateral vertebral velocities are antegrade. Critical Notification Critical Value: No <Conclusion> No significant carotid occlusive disease bilaterally Signed by : Lorne Nelson, Electronically Approved : 12/27/2018 08:47:24
== END 2018-12-25 15:31 | disposition home or self-care (01) ==
LOC: ER 10:43 → 6 SOUTH 14:00
PROVIDERS: ADMIT Family Medicine; ATTEND Family Medicine
DX: R55 Syncope and collapse (principal); E11.9 Type 2 diabetes mellitus without complications; R41.82 Altered mental status, unspecified; I10 Essential (primary) hypertension; R11.2 Nausea with vomiting, unspecified; F17.210 Nicotine dependence, cigarettes, uncomplicated; E78.5 Hyperlipidemia, unspecified; E78.00 Pure hypercholesterolemia, unspecified; I95.9 Hypotension, unspecified; J40 Bronchitis, not specified as acute or chronic; F32.9 Major depressive disorder, single episode, unspecified; Z83.3 Family history of diabetes mellitus; Z86.718 Personal history of other venous thrombosis and embolism; Z90.49 Acquired absence of other specified parts of digestive tract; Z86.73 Personal history of transient ischemic attack (TIA), and cerebral infarction without residual deficits; Z82.49 Family history of ischemic heart disease and other diseases of the circulatory system
CPT/HCPCS: 36415; 70450; 71045; 80048; 80053; 80307; 81001; 82962; 83036; 84443; 84484; 85025; 93005; 93306; 93880; 96360; 96361; 96372; 99284; G0378; G0480; J1815; J7030; G0379

== ENCOUNTER → 2019-01-14 | Outpatient (CLI) | payer OTHER ==
[2018-12-25 12:51] VITALS: BP 129/81
[~2019-01-14] MED LIST changes: +HYDR12.58 PO; +INSU100I13 SQ
[2019-01-14] MEDS: REGADENOSON 0.4 MG/5 ML DISP.SYRIN. IV ONE (09:45)
--- NOTE | 2019-01-14 13:33 | RAD ---
MR#: [id number] Date of Study: 01/14/2019 Ordering Physician: ELIJAH NELSON, Referring Physician: ANDREA ORTEGA Tech: CHRISTIAN Valladares ARRT (R) (N) APPROVED REPORT Test Type: Pharmacological Stress Nurse/Tech: Carla Taylor R.N. Test Indications: dyspnea Cardiac History: CVA x3,htn, DM, smoker Medications: See Electronic Medical Record Medical History: See Electronic Medical Record Resting Heart Rate: 55 bpm Resting Blood Pressure: 111/54mmHg Pretest Chest Pain: No chest pain Nurse/Tech Notes S1S2, lungs CTA Consent: The procedure was explained to the patient in lay terms. Informed consent was witnessed. Jerome eout was entered into [employer]. History and Stress Test performed by CHRISTIAN Valladares ARRT (R) (N) Pharm. Details Pharmacologic stress testing was performed using 0.4mg per 5ml of regadenoson given intravenously ove r 7-10 seconds. Stress Symptoms Slight SOA POST EXERCISE Reason for Termination: Infusion complete Max HR: 84 bpm Max Blood Pressure: 140/72mmHg Blood Pressure response to exercise: Normal blood pressure response during stress. Heart Rate response to exercise: wnl Chest Pain: No. Arrhythmia: No. ST Change: No. no change from above noted abnormal baseline INTERPRETATION Stress EKG Conclusion: No evidence of ischemia. Imaging Protocol IMAGE PROTOCOL: Rest Tc-99m/stress Tc-99m 1 day Rest: Stress: Viability: Radiopharm.Tc99m [id number] Sestamibi [id number] 33mCi Img Date 01/14/2019 01/14/2019 Inj-Img [id number]. 60min. Rest Admin Site:IV - Right AntecubitalAdministrator:CHRISTIAN Valladares ARRT (R)(N) Stress Admin Site: IV - Right AntecubitalAdministrator: RT Peyton (R)(N) STRESS DATA End Diast. Vol.108.0mlAv. Heart Rate66.0bpm LVEDV index BSA48.0mlCardiac Output0.0L/min End Syst. Vol.32.0mlCO Index BSA0.0L/min LVESV index BSA14.0mlMyocardial Esfx809.0g Eject. Eumydari30.0% Stress Scores Regional WT1.00Summed WT7.00 Regional WM0.00Summed WM0.00 The rest and stress images show normal perfusion, normal contraction and thickening. LV Perf. Quant 17 Seg. SSS0.00 17 Seg. SRS0.00 17 Seg. SDS0.00 Stress Defect Extent (% LAD)0.00Rest Defect Extent (% LAD)0.00Rev. Defect Extent (% LAD)0.00 Stress Defect Extent (% LCX) 0.00Rest Defect Extent (% LCX)0.00Rev. Defect Extent (% LCX)0.00 Stress Defect Extent (% RCA)0.00Rest Defect Extent (% RCA)0.00Rev. Defect Extent (% RCA)0.00 Stress Defect Extent (% AL)0.00Rest Defect Extent (% AL)0.00Rev. Defect Extent (% AL)0.00 Other Information Quality:Good Risk Assessment: Low Risk Conclusion 1. No evidence of EKG changes with stress testing. 2. Normal perfusion at stress/rest. 3. Low risk study. 4. EF > 60%. Signed by : Elijah Nelson, Electronically Approved : 01/14/2019 13:32:52
== END | disposition home or self-care (01) ==
LOC: NM 14:03
PROVIDERS: ATTEND Internal Medicine Cardiovascular Disease
DX: R06.00 Dyspnea, unspecified (principal); I10 Essential (primary) hypertension; E11.9 Type 2 diabetes mellitus without complications; Z87.891 Personal history of nicotine dependence; Z86.73 Personal history of transient ischemic attack (TIA), and cerebral infarction without residual deficits
CPT/HCPCS: 78452; 93017; A9500; J2785

== ENCOUNTER → 2019-02-02 | Day surgery (SDC) | payer OTHER ==
[~2019-02-02] MED LIST changes: +IV RINGERS,LACTATED 1000ML 1,000 ML IV SCH; +PROPOFOL 20 ML IV ONE
[2019-02-02 09:41] VITALS: BP 115/58
--- NOTE | 2019-02-03 16:06 | PATHOLOGY ---
[facility] [place] Accession Number: [id number] . 01 Material submitted: . PART A: rectum - RECTAL POLYP BIOPSIES PART B: colon - SIGMOID POLYP. Modifiers: sigmoid PART C: colon - TRANSVERSE COLON POLYP. Modifiers: transverse . 01 Clinical history: . CRC screen, positive occult . 02 Diagnosis: A. Colorectal biopsies, rectal polyps: - Hyperplastic polyps (2). . B. Colon biopsy, sigmoid polyp: - Tubular adenoma. . C. Colon biopsy, transverse colon polyp: - Tubular adenoma. (JPM:mario; 02/03/2019) QMS/02/03/2019 . 02 Comment: Sections of the rectal biopsy reveal two hyperplastic polyps. There are also two mucosal-associated lymphoid aggregates. There are no adenomatous changes or evidence of malignancy. . Sections of the sigmoid colon biopsy reveal a tubular adenoma showing no high grade dysplasia or evidence of malignancy. . Sections of the transverse colon biopsy also reveal a tubular adenoma showing no high grade dysplasia or evidence of malignancy. (JPM:mario; 02/03/2019) . 02 Electronically signed: . Clyde Zamora MD, Pathologist NPI- [id number] . 01 Gross description: . A. Received in formalin labeled "Zaire Velasquez, rectal polyp BX's," are 2 segments of shook soft tissue measuring 0.8 x 0.2 x 0.2 cm in aggregate dimensions and measuring 0.4 cm each in maximum dimension. The specimen is submitted entirely in cassette A1. . B. Received in formalin labeled "Zaire Velasquez, sigmoid polyp," is a 0.7 x 0.5 x 0.4 cm polypoid piece of shook soft tissue. The margin is inked and the tissue is sectioned perpendicular to the margin and submitted entirely in cassette B1. . C. Received in formalin labeled "Ron, Zaire, transverse colon polyp," is a single segment of shook soft tissue measuring 0.5 cm in maximum dimension. The specimen is entirely submitted in cassette C1. (TSD; 02/02/2019) TOB/TOB . 02 Pathologist provided ICD-10: D12.5, D12.3, K62.1 . 02 CPT . 836416, 250484, 661216 Specimen Comment: A courtesy copy of this report has been sent to Specimen Comment: [phone], . Specimen Comment: Report sent to / DR BROOKE Performed at: 01 [facility] [address], [place], [place] [id number] MD Hardy Núñez MD Phone: [phone] Performed at: 02 [facility] [address] [place], [place] [id number] MD Clyde Zamora MD Phone: [phone]
== END ==
LOC: SURG 07:10
PROVIDERS: ATTEND Internal Medicine Gastroenterology
DX: K62.1 Rectal polyp (principal); D12.5 Benign neoplasm of sigmoid colon; D12.3 Benign neoplasm of transverse colon; K57.30 Diverticulosis of large intestine without perforation or abscess without bleeding; K64.0 First degree hemorrhoids; E11.9 Type 2 diabetes mellitus without complications; I10 Essential (primary) hypertension; E78.00 Pure hypercholesterolemia, unspecified; F15.90 Other stimulant use, unspecified, uncomplicated; Z86.73 Personal history of transient ischemic attack (TIA), and cerebral infarction without residual deficits; Z72.89 Other problems related to lifestyle; Z79.82 Long term (current) use of aspirin; Z98.890 Other specified postprocedural states; Z79.84 Long term (current) use of oral hypoglycemic drugs
CPT/HCPCS: 45380; 45385; 82962; 88305; J2704